=== PATIENT | female | born 1940 | race Caucasian/White ===

== ENCOUNTER 2020-02-18 05:26 | Day surgery (SDC) | payer OTHER ==
[~2020-02-18] VITALS: Ht 157.5 cm; Wt 83.4 kg
[2020-02-18] VITALS (9 sets, daily range): BP systolic 117–134; BP diastolic 59–94
[2020-02-18] MEDS ORDERED: LIDOcaine 1% (10mg/ml)w/preservative injection 20ml MDV ONE (05:54)
[2020-02-18] MEDS ORDERED: iohexol 350MG/ML 100ml bottle IV ONE (05:54)
[2020-02-18] MEDS ORDERED: fentaNYL/PF 50MCG/1 ML 2ML syringe ONE (05:54)
[2020-02-18] MEDS ORDERED: midazolam 2 mg/2 ml injection ONE (05:54)
[2020-02-18] MEDS ORDERED: diphenhydrAMINE 25mg capsule PO PRN (05:55)
[2020-02-18] MEDS ORDERED: LORazepam 0.5 MG tablet PO PRN (05:55)
[2020-02-18] MEDS ORDERED: normal saline 1,000 ML IV SCH (05:55)
[2020-02-18] MEDS ORDERED: SOLI10TA2 PO (06:21)
[2020-02-18] MEDS ORDERED: NEBI20TA2 PO (06:23)
[2020-02-18] MEDS ORDERED: CITA20TA28 PO (06:24)
[2020-02-18] MEDS ORDERED: LOSA25TA96 PO (06:25)
[2020-02-18] MEDS ORDERED: HCTZ25T PO (06:26)
[2020-02-18] MEDS ORDERED: HYDR-4069 PO (06:28)
[2020-02-18] MEDS ORDERED: AMLO10TA4 PO (06:37)
[2020-02-18] MEDS ORDERED: diphenhydrAMINE 50 mg/ml inj ONE (06:42)
[2020-02-18 06:51] LABS: BASOPHILS # (AUTO) 0.1 X10'3 (0-0.2); BASOPHILS % (AUTO) 0.8 % (0-1); EOSINOPHILS # (AUTO) 0.9 X10'3 (0-0.9); EOSINOPHILS % (AUTO) 9.9 % (0-6); HEMATOCRIT 43.4 % (35.0-45.0); HEMOGLOBIN 14.4 g/dl (12.0-16.0); LYMPHOCYTES # (AUTO) 2.1 X10'3 (1.1-4.8); LYMPHOCYTES % (AUTO) 24.5 % (21-51); MEAN CORPUSCULAR HEMOGLOBIN 31.2 PG (27.0-31.0); MEAN CORPUSCULAR HGB CONC 33.1 g/dL (33.0-36.5); MEAN CORPUSCULAR VOLUME 94.4 FL (78-98); MEAN PLATELET VOLUME 8.7 FL (7.4-10.4); MONOCYTES # (AUTO) 0.5 X10'3 (0-0.9); NEUTROPHILS # (AUTO) 5.1 X10'3 (1.8-7.7); NEUTROPHILS % (AUTO) 58.8 % (42-75); PLATELET COUNT 146 X10'3 (140-440); RED CELL DISTRIBUTION WIDTH 13.3 % (11.5-14.5); WHITE BLOOD COUNT 8.7 X10'3 (4.5-11.0)
[2020-02-18] MEDS ORDERED: iohexol 350 MG/ML 50ML vial IV ONE (06:53)
[2020-02-18 06:58] LABS: ALBUMIN 3.5 G/DL (3.4-5.0); ANION GAP 5 (8-16); BLOOD UREA NITROGEN 14 MG/DL (7-18); CALCIUM 8.6 MG/DL (8.5-10.1); CHLORIDE 106 MMOL/L (99-107); CREATININE 1.08 MG/DL (0.40-0.90); GLUCOSE 102 MG/DL (70-104); PARTIAL THROMBOPLASTIN TIME 27 SECONDS (22-32); POTASSIUM 3.6 MMOL/L (3.5-5.1); SODIUM 144 MMOL/L (135-145); TOTAL CARBON DIOXIDE 33.3 MMOL/L (24-32); eGFR 49 ML/MIN
== END 2020-02-18 10:10 | disposition home or self-care (01) ==
LOC: SSTAY O 05:26
PROVIDERS: ATTEND Internal Medicine Interventional Cardiology
DX: I71.2 Thoracic aortic aneurysm, without rupture (principal); I25.10 Atherosclerotic heart disease of native coronary artery without angina pectoris; I10 Essential (primary) hypertension; Z79.899 Other long term (current) drug therapy; Z90.710 Acquired absence of both cervix and uterus; Z98.890 Other specified postprocedural states; Z72.89 Other problems related to lifestyle; Z79.01 Long term (current) use of anticoagulants; Z80.0 Family history of malignant neoplasm of digestive organs
CPT/HCPCS: 36415; 80048; 85025; 85610; 85730; 93458; 93567; 99152; 99153; C1769; C1894; J1200; J1644; J2001; J2250; J3010; Q9967; A4620

== ENCOUNTER 2020-03-20 05:09 | Inpatient (IN) | payer OTHER ==
[2020-03-13] MEDS: albuterol 2.5 MG/3 ML nebule NEB PRN (13:06)
[2020-03-13 14:18] LABS: BASOPHILS # (AUTO) 0.1 X10'3 (0-0.2); BASOPHILS % (AUTO) 0.8 % (0-1); EOSINOPHILS # (AUTO) 0.7 X10'3 (0-0.9); EOSINOPHILS % (AUTO) 9.1 % (0-6); LYMPHOCYTES # (AUTO) 2.9 X10'3 (1.1-4.8); MEAN CORPUSCULAR HEMOGLOBIN 31.7 PG (27.0-31.0); MEAN CORPUSCULAR HGB CONC 33.7 g/dL (33.0-36.5); MEAN CORPUSCULAR VOLUME 94.2 FL (78-98); MEAN PLATELET VOLUME 8.2 FL (7.4-10.4); MONOCYTES # (AUTO) 0.5 X10'3 (0-0.9); MONOCYTES % (AUTO) 6.1 % (2-12); PRE OP HEMATOCRIT 42.9 % (35.0-45.0); PRE OP HEMOGLOBIN 14.4 g/dL (12.0-16.0); PRE OP PLATELET COUNT 153 X10'3 (140-440); RED BLOOD COUNT 4.55 X10'6 (4.20-5.60); RED CELL DISTRIBUTION WIDTH 13.6 % (11.5-14.5)
[2020-03-13 14:31] LABS: PRE OP PROTIME 9.9 SECONDS (9.0-12.0)
[2020-03-13 14:35] LABS: ALBUMIN 3.9 G/DL (3.4-5.0); ALBUMIN/GLOBULIN RATIO 1.2 (1.1-1.5); ALKALINE PHOSPHATASE 50 IU/L (46-116); BLOOD UREA NITROGEN 18 MG/DL (7-18); BUN/CREATININE RATIO 19.4 (6.6-38.0); CHLORIDE 102 MMOL/L (99-107); CREATININE 0.93 MG/DL (0.40-0.90); PRE OP ALT 16 U/L (30-65); PRE OP ANION GAP 8 (8-16); PRE OP AST 19 U/L (10-37); PRE OP BILIRUB, TOTAL 0.5 MG/DL (0.0-1.0); PRE OP GLUCOSE 95 MG/DL (70-104); PRE OP SODIUM 143 MMOL/L (135-145); TOTAL CARBON DIOXIDE 33.2 MMOL/L (24-32); TOTAL PROTEIN 7.2 G/DL (6.4-8.2); eGFR 58 ML/MIN
[2020-03-13 14:36] LABS: PRE OP POTASSIUM 3.3 MMOL/L (3.4-5.1)
[2020-03-13 15:23] LABS: CLARITY,URINE SLIGHTLY CLOUDY (Clear); COLOR,URINE STRAW (Yellow); GLUCOSE, URINE NEGATIVE (Neg); KETONES,URINE NEGATIVE (Neg); LEUKOCYTE ESTERASE ,URINE NEGATIVE (Neg); NITRITES, URINE NEGATIVE (Neg); OCCULT BLOOD,URINE NEGATIVE (Neg); PROTEIN,URINE NEGATIVE (Neg); UROBILINOGEN,URINE 0.2 E.U/dL (0.2-1.0)
[2020-03-13 15:30] LABS: UA COLLECTION TYPE NON-SPECIFIED
[2020-03-13 15:40] LABS: MUCUS STRANDS NONE SEEN /LPF (Neg); SQUAMOUS EPITHELIAL CELL,UR FEW /LPF (FEW)
[2020-03-13 15:41] LABS: BACTERIA,URINE NONE SEEN /HPF (Neg); RBC,URINE 0-2 /HPF (0-2); WBC,URINE 0-4 /HPF (0-4)
[~2020-03-20] VITALS: Ht 160 cm; Wt 84.7 kg
[2020-03-20] VITALS (18 sets, daily range): BP systolic 104–141; BP diastolic 54–90
[~2020-03-20 05:09] MED LIST: AMLO10TA4 PO; CITA20TA28 PO; HCTZ25T PO; HYDR-4069 PO; LOSA25TA96 PO; NEBI20TA2 PO; SOLI10TA2 PO; albuterol 2.5 MG/3 ML nebule ONE; ringers solution, lacted 1,000 ML IV SCH
[2020-03-20] MEDS ORDERED: ceFAZolin 1000mg inj ONE (05:11)
[2020-03-20] MEDS ORDERED: mupirocin 2% nasal ointment 1gm UD NS ONE (05:30)
[2020-03-20] MEDS ORDERED: DOCUMENT DATE & TIME OF BETA-BLOCKER PO ONE (05:30)
[2020-03-20] MEDS ORDERED: famotidine 20mg tablet PO ONE (05:30)
[2020-03-20] MEDS ORDERED: gabapentin 400mg capsule PO ONE (05:30)
[2020-03-20] MEDS ORDERED: cefazolin/dext.iso 2gm/50ml 50 ML IV ONE (05:30)
[2020-03-20] MEDS ORDERED: vancomycin 1,500 MG in NS 500ml IV soln IV ONE (05:30)
[2020-03-20] MEDS ORDERED: dextrose 50%-water 50ml dispensing syringe IV PRN ×2 (05:30→12:15)
[2020-03-20] MEDS ORDERED: LORazepam 2 mg/ml vial IV PRN (05:30)
[2020-03-20] MEDS: Insulin Reg/NS 100units/100mL 100 ML IV SCH (05:30)
[2020-03-20] MEDS ORDERED: metoprolol tartrate 12.5mg (1/2 tablet) PO ONE (05:30)
[2020-03-20] MEDS: insulin Lispro (HumaLOG) vial - multi-dose SQ SCH ×3 (07:00→17:00)
[2020-03-20] MEDS ORDERED: SUFENTANIL CITRATE 50 MCG/ML 2ml ampule IV ONE (07:18)
[2020-03-20] MEDS ORDERED: MIDAZolam 1mg/ml 10ml vial ONE (07:18)
[2020-03-20 08:56] LABS: ABG BASE EXCESS 4.2 mmol/L (-2.0-3.0); ABG HCO3 26.7 mmol/L (22.0-26.0); ABG OXYGEN SATURATION 99.5 % (95-98); ABG PCO2 33.2 mmHg (35.0-45.0); ABG PH 7.524 (7.350-7.450); ABG PO2 466.8 mmHg (60.0-100.0); CL (ABG) 103 mmol/L (99-107); FCOHb 0.3 % (0.5-1.5); FMetHb 0.4 % (0.3-1.12); FO2Hb 98.8 % (94-100); GLUCOSE (ABG) 98 mg/dl (70-104); IONIZED CA (ABG) 1.07 mmol/L (1.03-1.32); K (ABG) 3.5 mmol/L (3.3-5.1); NA (ABG) 136 mmol/L (135-145); TOTAL HEMOGLOBIN 12.8 G/dl (12.0-16.0)
[2020-03-20] MEDS ORDERED: methylPREDNISolone sod succ 1000mg vial ONE (09:00)
[2020-03-20] MEDS ORDERED: heparin 10,000 units/1 ML INJ ONE (09:00)
[2020-03-20] MEDS ORDERED: sodium bicarbonate (8.4%) inj. 1 MEQ/ML ML ONE (09:00)
[2020-03-20] MEDS ORDERED: aminocaproic acid 250 MG/1 ML inj. ONE (09:00)
[2020-03-20] MEDS ORDERED: potassium Cl 2 mEq/ml inj IV ONE (09:00)
[2020-03-20] MEDS ORDERED: calcium chloride 100 MG/1 ML inj IV ONE (09:00)
[2020-03-20] MEDS ORDERED: phenylephrine 10mg/ml inj. ONE (09:00)
[2020-03-20] MEDS ORDERED: LIDOcaine 2% (20 mg/ml) 5ml cardiac syringe ONE (09:00)
[2020-03-20] MEDS ORDERED: albumin (human) 25% 100 ML IV solution IV ONE (09:00)
[2020-03-20] MEDS ORDERED: heparin 1,000 units/ml 10ml inj ONE (09:00)
[2020-03-20] MEDS ORDERED: magnesium sulf 1 GM/2 ML ONE (09:00)
[2020-03-20 10:11] LABS: ACT @ 1.70 U 316 SEC (193-297); ACT @ 2.84 U 431 SEC (260-420); BASELINE ACT 161 SEC (101-148); PATIENT WEIGHT 83.0k KG
[2020-03-20 10:26] LABS: ABG BASE EXCESS VENOUS 3.9 mmol/L; ABG HCO3 VENOUS 28.3 mmol/L; ABG PCO2 VENOUS 41.5 mmHg; ABG PO2 VENOUS 53.6 mmHg; CL (ABG) 101 mmol/L (99-107); FMetHb VENOUS 0.2 %; FO2Hb VENOUS 88.8 %; GLUCOSE (ABG) 136 mg/dl (70-104); IONIZED CA (ABG) 1.05 mmol/L (1.03-1.32); K (ABG) 3.8 mmol/L (3.3-5.1); NA (ABG) 136 mmol/L (135-145); TOTAL HEMOGLOBIN 10.8 G/dl (12.0-16.0)
[2020-03-20 10:50] LABS: ABG HCO3 32.4 mmol/L (22.0-26.0); ABG OXYGEN SATURATION 98.5 % (95-98); ABG PCO2 39.9 mmHg (35.0-45.0); ABG PH 7.528 (7.350-7.450); ABG PO2 156.5 mmHg (60.0-100.0); CL (ABG) 99 mmol/L (99-107); FCOHb 0.3 % (0.5-1.5); FMetHb 0.5 % (0.3-1.12); FO2Hb 97.7 % (94-100); GLUCOSE (ABG) 169 mg/dl (70-104); IONIZED CA (ABG) 1.41 mmol/L (1.03-1.32); K (ABG) 4.2 mmol/L (3.3-5.1); NA (ABG) 131 mmol/L (135-145); TOTAL HEMOGLOBIN 9.5 G/dl (12.0-16.0)
[2020-03-20] MEDS ORDERED: albumin (Human) 5% 250ml 250 ML IV ONE ×2 (11:27→11:29)
[2020-03-20] MEDS ORDERED: LIDOcaine 2% (20mg/ml) 5ml vial ONE (11:28)
[2020-03-20] MEDS ORDERED: pancuronium br 1mg/ml inj IV ONE (11:28)
[2020-03-20] MEDS ORDERED: propofol inj 20 ML IV ONE (11:28)
[2020-03-20] MEDS ORDERED: desmopressin inj. 25 MCG in normal saline 100ml IV soln 93.75 ML IV ONE (11:30)
[2020-03-20 11:31] LABS: ABG BASE EXCESS 6.1 mmol/L (-2.0-3.0); ABG HCO3 30.1 mmol/L (22.0-26.0); ABG OXYGEN SATURATION 91.6 % (95-98); ABG PCO2 41.5 mmHg (35.0-45.0); ABG PH 7.479 (7.350-7.450); CL (ABG) 102 mmol/L (99-107); FCOHb 0.3 % (0.5-1.5); FMetHb 0.5 % (0.3-1.12); FO2Hb 90.9 % (94-100); GLUCOSE (ABG) 157 mg/dl (70-104); IONIZED CA (ABG) 1.18 mmol/L (1.03-1.32); K (ABG) 3.9 mmol/L (3.3-5.1); NA (ABG) 136 mmol/L (135-145); TOTAL HEMOGLOBIN 9.9 G/dl (12.0-16.0)
[2020-03-20] MEDS ORDERED: DOPamine 400mg/D5W 250ml 250 ML IV PRN ×2 (12:13→12:31)
[2020-03-20] MEDS ORDERED: niCARDipine-NS 40mg/200ml IVPB 200 ML IV PRN ×2 (12:13→12:32)
[2020-03-20] MEDS ORDERED: Insulin Reg/NS 100units/100mL 100 ML IV SCH (12:13)
[2020-03-20] MEDS ORDERED: nitroGLYCERIN-Tridil 50MG/D5W 250 ML IV PRN ×2 (12:13→12:32)
[2020-03-20] MEDS ORDERED: mineral oil 133ml enema RC PRN (12:15)
[2020-03-20] MEDS ORDERED: morphine 4 MG/ML inj SYRINge IV PRN ×2 (12:15)
[2020-03-20] MEDS ORDERED: Neutra Phos packet PO PRN (12:15)
[2020-03-20] MEDS ORDERED: magnesium 4gm in 100ml NS 100 ML IV PRN (12:15)
[2020-03-20] MEDS ORDERED: acetaminophen 325mg tablet PO PRN ×2 (12:15)
[2020-03-20] MEDS ORDERED: sodium phosphate inj. 30 MMOL in dextrose 5%-water 250 ML IV PRN (12:15)
[2020-03-20] MEDS ORDERED: normal saline 250ml IV soln 250 ML IV PRN (12:15)
[2020-03-20] MEDS ORDERED: bisacodyl 10mg suppository rectal RC PRN (12:15)
[2020-03-20] MEDS ORDERED: magnesium hydroxide 30ml (MOM) UD suspension PO PRN (12:15)
[2020-03-20] MEDS ORDERED: HYDROcodone/acetaminophen 10/325mg tab PO PRN ×2 (12:15)
[2020-03-20] MEDS ORDERED: pantoprazole 40 MG vial IV ONE (12:15)
[2020-03-20] MEDS ORDERED: magnesium citrate 296ml oral solution PO PRN (12:15)
[2020-03-20] MEDS ORDERED: magnesium 2GM in 50ml NS 50 ML IV PRN (12:15)
[2020-03-20] MEDS ORDERED: potassium Cl 20 mEq SR tablet PO PRN (12:15)
[2020-03-20] MEDS ORDERED: ondansetron/PF 4mg/2ml inj IV PRN (12:15)
[2020-03-20] MEDS ORDERED: metoclopramide 5 mg/ml inj IV PRN (12:15)
[2020-03-20] MEDS ORDERED: insulin glargine (Lantus) pen - multi-dose SQ PRN (12:15)
[2020-03-20] MEDS ORDERED: albumin (Human) 5% 250ml 250 ML IV PRN (12:15)
--- NOTE | 2020-03-20 12:30 | NUR ---
Received to room , accompanied by MD Arevalo and surgical crew. Placed on ventilator, to hot bread baker, arterial line and PA line pressure monitored. Chest tubes to suction at 20 cm. Boswell cath to gravity drainage. Dressings are dry and intact. See assessment record. All vasoactive drugs are infusing via central line. Assumed care of pt. with preceptor Flavio OCONNOR.
[2020-03-20 13:01] LABS: BASOPHILS % (AUTO) 0.2 % (0-1); EOSINOPHILS # (AUTO) 0.1 X10'3 (0-0.9); EOSINOPHILS % (AUTO) 1.2 % (0-6); HEMATOCRIT 32.2 % (35.0-45.0); HEMOGLOBIN 10.7 g/dl (12.0-16.0); LYMPHOCYTES % (AUTO) 9.6 % (21-51); MEAN CORPUSCULAR HEMOGLOBIN 31.2 PG (27.0-31.0); MEAN CORPUSCULAR HGB CONC 33.3 g/dL (33.0-36.5); MEAN CORPUSCULAR VOLUME 93.7 FL (78-98); MEAN PLATELET VOLUME 8.5 FL (7.4-10.4); MONOCYTES # (AUTO) 0.5 X10'3 (0-0.9); MONOCYTES % (AUTO) 4.5 % (2-12); NEUTROPHILS # (AUTO) 8.8 X10'3 (1.8-7.7); NEUTROPHILS % (AUTO) 84.5 % (42-75); PLATELET COUNT 83 X10'3 (140-440); RED BLOOD COUNT 3.44 X10'6 (4.20-5.60); RED CELL DISTRIBUTION WIDTH 13.6 % (11.5-14.5); WHITE BLOOD COUNT 10.4 X10'3 (4.5-11.0)
[2020-03-20 13:13] LABS: PARTIAL THROMBOPLASTIN TIME 35 SECONDS (22-32)
[2020-03-20] MEDS: sodium chloride 0.45% 1,000 ML IV SCH (13:14)
[2020-03-20] MEDS: gabapentin 300mg capsule PO SCH ×2 (13:14→20:37)
[2020-03-20 13:16] LABS: ALANINE AMINOTRANSFERASE 37 U/L (12-78); ALBUMIN 2.9 G/DL (3.4-5.0); ALBUMIN/GLOBULIN RATIO 1.6 (1.1-1.5); ALKALINE PHOSPHATASE 34 IU/L (46-116); ANION GAP 8 (8-16); ASPARTATE AMINO TRANSFERASE 66 U/L (10-37); BILIRUBIN,TOTAL 1.1 MG/DL (0.1-1.0); BLOOD UREA NITROGEN 14 MG/DL (7-18); BUN/CREATININE RATIO 14.3 (6.6-38.0); CALCIUM 8.4 MG/DL (8.5-10.1); CHLORIDE 110 MMOL/L (99-107); CREATININE 0.98 MG/DL (0.40-0.90); GLUCOSE 177 MG/DL (70-104); MAGNESIUM 3.2 MG/DL (1.5-2.4); PHOSPHORUS 2.2 MG/DL (2.3-4.5); POTASSIUM 3.6 MMOL/L (3.5-5.1); SODIUM 146 MMOL/L (135-145); TOTAL CARBON DIOXIDE 28.4 MMOL/L (24-32); TOTAL PROTEIN 4.7 G/DL (6.4-8.2); eGFR 54 ML/MIN
[2020-03-20 13:20] LABS: ABG BASE EXCESS 3.9 mmol/L (-2.0-3.0); ABG HCO3 27.4 mmol/L (22.0-26.0); ABG PCO2 (T) 37.6 mmHg (35.0-45.0); ABG PH (T) 7.481 (7.350-7.450); ABG PO2 (T) 234.9 mmHg (83-108); FCOHb 0.3 % (0.5-1.5); FO2Hb 98.7 % (94-100); PEEP 5 cm H2O; RESPIRATORY RATE 12 b/min; TIDAL VOLUME 650 mL; TOTAL HEMOGLOBIN 11.9 G/dl (12.0-16.0)
[2020-03-20 13:50] LABS: NUCLEATED RED BLOOD CELLS 3 /100WBC (0-0); PLATELET ESTIMATE DECREASED; TOTAL CELLS COUNTED 100
[2020-03-20 13:51] LABS: LARGE PLATELETS FEW
[2020-03-20] MEDS: potassium Cl 20mEq/100mL bag 100 ML IV PRN ×5 (13:51→21:44)
[2020-03-20] MEDS: sodium phosphate inj. 15 MMOL in dextrose 5%-water 250 ML IV PRN ×2 (14:21→21:24)
[2020-03-20] MEDS: ceFAZolin 1GM/D5W- ADD-VANTAGE 50 ML IV SCH (15:44)
--- NOTE | 2020-03-20 18:10 | NUR ---
Problems reprioritized. Patient report given, questions answered & plan of care reviewed with Bharati OCONNOR.
--- NOTE | 2020-03-20 18:15 | NUR ---
Patient in room ICU 2039. I have received report from Mona OCONNOR & Flavio RN and had the opportunity to ask questions and assume patient care.
[2020-03-20 19:14] LABS: BASOPHILS % (AUTO) 0.1 % (0-1); EOSINOPHILS % (AUTO) 0.1 % (0-6); HEMATOCRIT 35.2 % (35.0-45.0); HEMOGLOBIN 11.7 g/dl (12.0-16.0); LYMPHOCYTES # (AUTO) 0.7 X10'3 (1.1-4.8); LYMPHOCYTES % (AUTO) 8.1 % (21-51); MEAN CORPUSCULAR HEMOGLOBIN 31.7 PG (27.0-31.0); MEAN CORPUSCULAR HGB CONC 33.3 g/dL (33.0-36.5); MEAN CORPUSCULAR VOLUME 95.3 FL (78-98); MEAN PLATELET VOLUME 8.9 FL (7.4-10.4); MONOCYTES # (AUTO) 0.5 X10'3 (0-0.9); MONOCYTES % (AUTO) 5.1 % (2-12); NEUTROPHILS % (AUTO) 86.6 % (42-75); PLATELET COUNT 93 X10'3 (140-440); RED BLOOD COUNT 3.69 X10'6 (4.20-5.60); RED CELL DISTRIBUTION WIDTH 13.9 % (11.5-14.5); WHITE BLOOD COUNT 9.2 X10'3 (4.5-11.0)
[2020-03-20 19:26] LABS: ALBUMIN 3.1 G/DL (3.4-5.0); ANION GAP 8 (8-16); BLOOD UREA NITROGEN 14 MG/DL (7-18); BUN/CREATININE RATIO 12.1 (6.6-38.0); CALCIUM 8.3 MG/DL (8.5-10.1); CHLORIDE 112 MMOL/L (99-107); CREATININE 1.16 MG/DL (0.40-0.90); GLUCOSE 144 MG/DL (70-104); MAGNESIUM 2.5 MG/DL (1.5-2.4); PHOSPHORUS 1.9 MG/DL (2.3-4.5); POTASSIUM 3.8 MMOL/L (3.5-5.1); SODIUM 146 MMOL/L (135-145); TOTAL CARBON DIOXIDE 26.3 MMOL/L (24-32); eGFR 45 ML/MIN
[2020-03-20] MEDS: sennosides/docusate sodium tablet PO SCH (20:00)
[2020-03-20] MEDS: mupirocin 2% nasal ointment 1gm UD NS SCH (20:34)
[2020-03-20] MEDS: vancomycin/NS 1 GM ADD-VANTAGE 250 ML IV SCH (20:34)
--- NOTE | 2020-03-20 22:05 | NUR ---
PT STILL VERY SLEEPY, WAKES WITH PAINFUL STIMULI BUT IS FOLLOWING COMMANDS AND NODS HEAD APPROPRIATELY TO QUESTIONS ASKED. INCREASED DOPAMINE DRIP TO MAINTAIN A CI GREATER THAN 2. WILL CONTINUE TO MONITOR
[2020-03-21] VITALS (24 sets, daily range): BP systolic 101–144; BP diastolic 51–97
[2020-03-21] MEDS: ceFAZolin 1GM/D5W- ADD-VANTAGE 50 ML IV SCH ×3 (00:36→15:44)
--- NOTE | 2020-03-21 01:30 | NUR ---
PT IS STILL VERY SLEEPY, HAVING A HARD TIME CLEARING ANAESTHESIA. TRIED TO PLACE THE PT ON SPONTANEOUS ON THE VENT BUT THE PT DID NOT TOLERATE IT SO WE SWITCHED HER BACK TO A RATE.
[2020-03-21 03:39] LABS: BASOPHILS % (AUTO) 0.1 % (0-1); EOSINOPHILS % (AUTO) 0 % (0-6); HEMATOCRIT 37.3 % (35.0-45.0); HEMOGLOBIN 12.2 g/dl (12.0-16.0); LYMPHOCYTES # (AUTO) 1.4 X10'3 (1.1-4.8); LYMPHOCYTES % (AUTO) 8.7 % (21-51); MEAN CORPUSCULAR HEMOGLOBIN 31.5 PG (27.0-31.0); MEAN CORPUSCULAR HGB CONC 32.6 g/dL (33.0-36.5); MEAN CORPUSCULAR VOLUME 96.6 FL (78-98); MONOCYTES # (AUTO) 0.5 X10'3 (0-0.9); MONOCYTES % (AUTO) 3.4 % (2-12); NEUTROPHILS # (AUTO) 14.1 X10'3 (1.8-7.7); NEUTROPHILS % (AUTO) 87.8 % (42-75); PLATELET COUNT 126 X10'3 (140-440); RED BLOOD COUNT 3.86 X10'6 (4.20-5.60); RED CELL DISTRIBUTION WIDTH 14.1 % (11.5-14.5)
[2020-03-21 03:50] LABS: ABG BASE EXCESS -0.1 mmol/L (-2.0-3.0); ABG HCO3 26.2 mmol/L (22.0-26.0); ABG OXYGEN SATURATION 94.7 % (95-98); ABG PCO2 (T) 50.3 mmHg (35.0-45.0); ABG PH (T) 7.337 (7.350-7.450); ABG PO2 (T) 82.9 mmHg (83-108); FCOHb 0.1 % (0.5-1.5); FMetHb 0.1 % (0.3-1.12); FO2Hb 94.5 % (94-100); PATIENT TEMPERATURE 37.5; PEEP 5 cm H2O
[2020-03-21 04:04] LABS: PARTIAL THROMBOPLASTIN TIME 25 SECONDS (22-32)
[2020-03-21 04:08] LABS: ALANINE AMINOTRANSFERASE 77 U/L (12-78); ALBUMIN 3.3 G/DL (3.4-5.0); ALBUMIN/GLOBULIN RATIO 1.6 (1.1-1.5); ALKALINE PHOSPHATASE 41 IU/L (46-116); ANION GAP 7 (8-16); ASPARTATE AMINO TRANSFERASE 78 U/L (10-37); BILIRUBIN,TOTAL 0.5 MG/DL (0.1-1.0); BLOOD UREA NITROGEN 14 MG/DL (7-18); BUN/CREATININE RATIO 12.1 (6.6-38.0); CHLORIDE 112 MMOL/L (99-107); CREATININE 1.16 MG/DL (0.40-0.90); GLUCOSE 135 MG/DL (70-104); MAGNESIUM 2.3 MG/DL (1.5-2.4); PHOSPHORUS 4.9 MG/DL (2.3-4.5); POTASSIUM 4.1 MMOL/L (3.5-5.1); SODIUM 146 MMOL/L (135-145); TOTAL CARBON DIOXIDE 27.2 MMOL/L (24-32); TOTAL PROTEIN 5.4 G/DL (6.4-8.2); eGFR 45 ML/MIN
[2020-03-21] MEDS ORDERED: albuterol 2.5 MG/3 ML nebule NEB PRN (04:20)
[2020-03-21] MEDS: albuterol 2.5 MG/3 ML nebule NEB PRN (04:27)
--- NOTE | 2020-03-21 04:30 | NUR ---
PT TOLERATED SPONTANEOUS BREATHING TRIAL WELL AND PASSED WEANING PARAMETERS. JIMMIE RT AND I WERE ABLE TO EXTUBATE PT AT 0400 TO 4LPM NASAL CANNULA. PT DOES HAVE SOME STRIDOR PRESENT BUT STATES THAT HER BREATHING "FEELS FINE". JIMMIE RT PREPARING TO GIVE BREATHING TREATMENT. PT'S HEMODYNAMICS CONTINUE TO REMAIN STABLE WITH THE PT ON 2MCG/KG/MIN DOPAMINE. CHEST TUBE OUTPUT REMAINING BELOW 50ML/HR AND URINE OUTPUT GREATER THAN 30ML/HR.
[2020-03-21] MEDS: potassium Cl 20mEq/100mL bag 100 ML IV PRN ×2 (05:00→07:00)
--- NOTE | 2020-03-21 05:26 | NUR ---
PT STILL HAS STRIDOR PRESENT BUT FEELS "COMFORTABLE" WITH HER BREATHING. JIMMIE RT EDUCATED PT ON HOW TO USE IS AND FLUTTER VALVE ALONG WITH DEEP BREATHING AND COUGHING. PT WAS RECEPTIVE TO TEACHING BUT WILL NEED ONGOING REINFORCEMENT AND ENCOURAGEMENT ONCE MORE AWAKE. PT'S K AND MAG CAME BACK LOW ON HER MORNING LABS SO WE ARE REPLACING PER ORDERS.
--- NOTE | 2020-03-21 06:12 | NUR ---
Problems reprioritized. Patient report given, questions answered & plan of care reviewed with ILDEFONSO OCONNOR.
--- NOTE | 2020-03-21 06:44 | NUR ---
Patient in room ICU 2039. I have received report from Bharati OCONNOR and had the opportunity to ask questions and assume patient care. Dopamine turned off for CO 6.5, CI 3.6, HR 75. Insulin gtt turned off per protocol; pt. is not diabetic, HA1C is <7 and rate is 2.7. Charge nurse aware.
[2020-03-21] MEDS: insulin Lispro (HumaLOG) vial - multi-dose SQ SCH ×3 (07:00→17:00)
[2020-03-21] MEDS: mupirocin 2% nasal ointment 1gm UD NS SCH ×2 (07:15→20:00)
[2020-03-21] MEDS: gabapentin 300mg capsule PO SCH ×3 (07:15→20:30)
[2020-03-21] MEDS: sennosides/docusate sodium tablet PO SCH ×2 (07:15→20:00)
[2020-03-21] MEDS: atorvastatin 10mg tablet PO SCH (07:15)
[2020-03-21] MEDS: metoprolol tartrate 12.5mg (1/2 tablet) PO SCH ×2 (07:16→20:00)
[2020-03-21] MEDS: vancomycin/NS 1 GM ADD-VANTAGE 250 ML IV SCH ×2 (07:53→20:00)
[2020-03-21] MEDS ORDERED: tranexamic acid 100mg/ml inj. ONE (07:55)
[2020-03-21] MEDS ORDERED: protamine sulf. 10mg/ml inj. IV ONE (07:55)
[2020-03-21] MEDS ORDERED: nitroGLYCERIN in D5W 50mg/250ml (Tridil) infusion IV ONE (07:55)
[2020-03-21] MEDS ORDERED: sevoflurane 250ml liquid IH ONE (07:55)
[2020-03-21] MEDS ORDERED: INSULIN R 100 UNIT in NS 100ML (1 UNIT/1 ML) BAG IV ONE (07:55)
--- NOTE | 2020-03-21 07:55 | NUR ---
Dr. Arevalo's PAMera here to see pt. Aware of pt's slight stridor. Aware of current VS, drips all dc'd, CT and urine output, etc.
[2020-03-21] MEDS ORDERED: aspirin 325mg tablet, delayed-release (Ecotrin) PO SCH (08:00)
--- NOTE | 2020-03-21 09:37 | NUR ---
CHINTAN/Jaguar and ART lines dc'd per order. PT. just assisted pt. to chair. VSS
--- NOTE | 2020-03-21 11:43 | NUR ---
Pt. was c/o "seeing people that aren't here." RN reassured pt. that the effects of anesthesia can sometimes cause hallucinations.
--- NOTE | 2020-03-21 11:56 | NUR ---
Nutrition consult, patient s/p aortic valve replacement. Will need written post cardiac surgery nutrition education handout with verbal review prior to discharge. Patient observed resting, per RN note still clearing anesthesia. Will follow. Addendum: 03/21/20 at [address] Amended: Links added.
--- NOTE | 2020-03-21 11:57 | NUR ---
Pt's Jesse called earlier for an update. RN spoke with Jesse then transferred him into speak with patient.
[2020-03-21] MEDS: Insulin Reg/NS 100units/100mL 100 ML IV SCH (14:50)
[2020-03-21] MEDS ORDERED: furosemide 40mg/4ml inj IV ONE (14:50)
--- NOTE | 2020-03-21 17:24 | NUR ---
Pt. has spilled her water inadvertently twice this shift as her hands are shaky and weak.
--- NOTE | 2020-03-21 18:13 | NUR ---
Problems reprioritized. Patient report given, questions answered & plan of care reviewed with Barbi OCONNOR.
--- NOTE | 2020-03-21 18:30 | NUR ---
Patient up to chair in room ICU 2039. I have received report from Mona OCONNOR and had the opportunity to ask questions and assume patient care.
[2020-03-21] MEDS ORDERED: losartan 25mg tablet PO SCH (21:00)
[2020-03-22] VITALS (21 sets, daily range): BP systolic 111–147; BP diastolic 58–90
[2020-03-22] MEDS: ceFAZolin 1GM/D5W- ADD-VANTAGE 50 ML IV SCH (00:43)
[2020-03-22 02:58] LABS: BASOPHILS % (AUTO) 0.1 % (0-1); EOSINOPHILS % (AUTO) 0 % (0-6); HEMATOCRIT 31.7 % (35.0-45.0); HEMOGLOBIN 10.2 g/dl (12.0-16.0); LYMPHOCYTES # (AUTO) 1.1 X10'3 (1.1-4.8); LYMPHOCYTES % (AUTO) 6.1 % (21-51); MEAN CORPUSCULAR HEMOGLOBIN 31.1 PG (27.0-31.0); MEAN CORPUSCULAR HGB CONC 32.1 g/dL (33.0-36.5); MEAN CORPUSCULAR VOLUME 96.9 FL (78-98); MEAN PLATELET VOLUME 9.4 FL (7.4-10.4); MONOCYTES # (AUTO) 1.2 X10'3 (0-0.9); MONOCYTES % (AUTO) 6.7 % (2-12); NEUTROPHILS # (AUTO) 15.4 X10'3 (1.8-7.7); NEUTROPHILS % (AUTO) 87.1 % (42-75); PLATELET COUNT 93 X10'3 (140-440); RED BLOOD COUNT 3.27 X10'6 (4.20-5.60); RED CELL DISTRIBUTION WIDTH 14.5 % (11.5-14.5); WHITE BLOOD COUNT 17.7 X10'3 (4.5-11.0)
[2020-03-22 03:13] LABS: ANION GAP 3 (8-16); BLOOD UREA NITROGEN 26 MG/DL (7-18); BUN/CREATININE RATIO 24.3 (6.6-38.0); CALCIUM 7.9 MG/DL (8.5-10.1); CHLORIDE 109 MMOL/L (99-107); CREATININE 1.07 MG/DL (0.40-0.90); GLUCOSE 139 MG/DL (70-104); MAGNESIUM 2.6 MG/DL (1.5-2.4); PHOSPHORUS 3.8 MG/DL (2.3-4.5); POTASSIUM 4.6 MMOL/L (3.5-5.1); SODIUM 143 MMOL/L (135-145); TOTAL CARBON DIOXIDE 31.2 MMOL/L (24-32); eGFR 49 ML/MIN
--- NOTE | 2020-03-22 03:15 | NUR ---
Patient appears to be sleeping. Patient has an intermittent upper airway wheeze noted, swallow intact, sats maintained on 3LNC, IS and flutter valve use encouraged while awake.
--- NOTE | 2020-03-22 06:21 | NUR ---
report given and patient care assumed by Demond Wan.
--- NOTE | 2020-03-22 06:22 | NUR ---
[place] documentation: I have reviewed and agree with all interventions, assessments performed and documented by Paddy OCONNOR . [place] Medication Administration: For this medication-pass time frame, all medication were reviewed, dispensed, administered and documented per hospital policy by Paddy OCONNOR .
--- NOTE | 2020-03-22 06:24 | NUR ---
report given and patient care assumed by Demond Wan.
[2020-03-22] MEDS: insulin Lispro (HumaLOG) vial - multi-dose SQ SCH ×3 (07:00→17:00)
[2020-03-22] MEDS ORDERED: furosemide 40mg/4ml inj IV ONE (07:05)
[2020-03-22] MEDS: pantoprazole 40mg Tablet.DR PO SCH (07:38)
[2020-03-22] MEDS: aspirin 81mg tablet.DR PO SCH (07:38)
[2020-03-22] MEDS: gabapentin 300mg capsule PO SCH (07:38)
[2020-03-22] MEDS: sennosides/docusate sodium tablet PO SCH ×2 (07:38→20:24)
[2020-03-22] MEDS: atorvastatin 10mg tablet PO SCH (07:38)
[2020-03-22] MEDS: amLODIPine 5mg tablet PO SCH (07:38)
[2020-03-22] MEDS: mupirocin 2% nasal ointment 1gm UD NS SCH (07:39)
[2020-03-22] MEDS: sodium chloride 0.45% 1,000 ML IV SCH (13:16)
[2020-03-22] MEDS ORDERED: potassium Cl 20 mEq SR tablet PO PRN (16:50)
[2020-03-22] MEDS ORDERED: potassium Cl 20mEq/100mL bag 100 ML IV PRN (16:50)
[2020-03-22] MEDS ORDERED: magnesium 4gm in 100ml NS 100 ML IV PRN (16:50)
[2020-03-22] MEDS ORDERED: magnesium 2GM in 50ml NS 50 ML IV PRN (16:50)
--- NOTE | 2020-03-22 19:28 | NUR ---
Problems reprioritized. Patient report given, questions answered & plan of care reviewed with Nadeem RN ( ACCE )
[2020-03-22] MEDS: potassium Cl 20 mEq SR tablet PO SCH (19:54)
[2020-03-22] MEDS: magnesium Cl slow-release 64mg tablet PO SCH (19:54)
--- NOTE | 2020-03-22 19:55 | NUR ---
Pt is transferred to [place] [address] via w/c with portable monitor. Pt is stable, transfer tolerated well, no signs of distress. All belongings were with the pt.
[2020-03-22] MEDS: oxybutynin 5mg tablet PO SCH (20:25)
[2020-03-22] MEDS ORDERED: losartan 25mg tablet PO SCH (21:00)
--- NOTE | 2020-03-22 23:19 | NUR ---
Patient in room MED 311. I have received report from Liza OCONNOR and had the opportunity to ask questions and assume patient care.
[2020-03-23] VITALS (10 sets, daily range): BP systolic 109–140; BP diastolic 64–116
[2020-03-23 06:14] LABS: BASOPHILS % (AUTO) 0.1 % (0-1); EOSINOPHILS # (AUTO) 0.1 X10'3 (0-0.9); EOSINOPHILS % (AUTO) 0.7 % (0-6); HEMATOCRIT 32.6 % (35.0-45.0); HEMOGLOBIN 10.6 g/dl (12.0-16.0); LYMPHOCYTES # (AUTO) 2.1 X10'3 (1.1-4.8); MEAN CORPUSCULAR HEMOGLOBIN 31.2 PG (27.0-31.0); MEAN CORPUSCULAR HGB CONC 32.4 g/dL (33.0-36.5); MEAN CORPUSCULAR VOLUME 96.3 FL (78-98); MEAN PLATELET VOLUME 9.5 FL (7.4-10.4); MONOCYTES # (AUTO) 1.1 X10'3 (0-0.9); MONOCYTES % (AUTO) 8.1 % (2-12); NEUTROPHILS % (AUTO) 75.1 % (42-75); PLATELET COUNT 96 X10'3 (140-440); RED BLOOD COUNT 3.39 X10'6 (4.20-5.60); RED CELL DISTRIBUTION WIDTH 13.9 % (11.5-14.5); WHITE BLOOD COUNT 13.4 X10'3 (4.5-11.0)
[2020-03-23 06:25] LABS: ALBUMIN 3.1 G/DL (3.4-5.0); ANION GAP 4 (8-16); BLOOD UREA NITROGEN 22 MG/DL (7-18); BUN/CREATININE RATIO 24.7 (6.6-38.0); CALCIUM 8.3 MG/DL (8.5-10.1); CHLORIDE 105 MMOL/L (99-107); CREATININE 0.89 MG/DL (0.40-0.90); GLUCOSE 101 MG/DL (70-104); MAGNESIUM 2.1 MG/DL (1.5-2.4); POTASSIUM 4.3 MMOL/L (3.5-5.1); SODIUM 141 MMOL/L (135-145); TOTAL CARBON DIOXIDE 31.8 MMOL/L (24-32); eGFR 61 ML/MIN
--- NOTE | 2020-03-23 06:33 | NUR ---
Problems reprioritized. Patient report given, questions answered & plan of care reviewed with Miladis geiger.
[2020-03-23] MEDS: insulin Lispro (HumaLOG) vial - multi-dose SQ SCH ×3 (07:00→17:00)
[2020-03-23] MEDS ORDERED: furosemide 40mg/4ml inj IV ONE (07:20)
[2020-03-23] MEDS: aspirin 81mg tablet.DR PO SCH (08:45)
[2020-03-23] MEDS: oxybutynin 5mg tablet PO SCH ×3 (08:45→21:23)
[2020-03-23] MEDS: sennosides/docusate sodium tablet PO SCH ×2 (08:46→21:23)
[2020-03-23] MEDS: magnesium Cl slow-release 64mg tablet PO SCH ×2 (08:46→21:24)
[2020-03-23] MEDS: citalopram 20mg tablet PO SCH (08:46)
[2020-03-23] MEDS: potassium Cl 20 mEq SR tablet PO SCH ×2 (08:46→20:00)
[2020-03-23] MEDS: amLODIPine 5mg tablet PO SCH (08:47)
[2020-03-23] MEDS: pantoprazole 40mg Tablet.DR PO SCH (08:47)
[2020-03-23] MEDS: HYDROchlorothiazide 25mg tablet PO SCH (08:48)
[2020-03-23] MEDS: atorvastatin 10mg tablet PO SCH (08:48)
[2020-03-23] MEDS ORDERED: amiodarone 150mg/dext, iso-os 100 ML IV ONE (09:40)
[2020-03-23] MEDS: amiodarone/D5 360MG/200ML BAG 200 ML IV SCH ×2 (09:56→15:53)
--- NOTE | 2020-03-23 14:08 | NUR ---
Nutrition consult: Pt seen at bedside provided with written and verbal post cardiac surgery nutrition therapy and heart healthy educations. Pt on a no concentrated sweets diet initially averaging 75% PO intake however most recently averaging 50% PO intake not fully meeting nutrient needs at this time. Pt reports low PO intake secondary to surgery and not really liking the food however is with no food preferences at this time. Pt agrees to yogurt with dinner tonight and q breakfast. Pt states she has Boost and Premier protein at home, RD encouraged PO intake of ONS for increased protein needs. Pt states she generally drinks a Premier Protein 1-2 times a week. Pt reports only food allergy is shrimp and denies difficulty chewing/swallowing. Pt reports no issues with feeding self despite incision and denies texture modification at this time. Pt report LBM was Monday 03/19 and is feeling somewhat constipated. Pt currently receiving routine bowel care and pt agrees to prunes with dinner tonight. All food requests were d/w dietary. Pt provided with RD contact information and encouraged to reach out. Will remain available. Addendum: 03/23/20 at [address] Amended: Links added.
--- NOTE | 2020-03-23 18:00 | NUR ---
Patient in room MED 311. I have received report from FRANCHESCA OCONNOR and had the opportunity to ask questions and assume patient care.
--- NOTE | 2020-03-23 18:27 | NUR ---
Problems reprioritized. Patient report given, questions answered & plan of care reviewed with ELVIN Yeboah.
[2020-03-23] MEDS: losartan 50mg tablet PO SCH (21:24)
--- NOTE | 2020-03-23 23:00 | NUR ---
IV INFILTRATED, DC'D. WILL RESUME CARDIZEM GTT WHEN IV ACCESS ESTABLISHED
[2020-03-24 02:00] VITALS: BP 127/85
[2020-03-24] MEDS: amiodarone/D5 360MG/200ML BAG 200 ML IV SCH ×3 (03:51→07:36)
[2020-03-24 07:00] VITALS: BP 124/70
--- NOTE | 2020-03-24 07:19 | NUR ---
Patient in room MED 311. I have received report from ELVIN Yeboah and had the opportunity to ask questions and assume patient care.
--- NOTE | 2020-03-24 07:42 | NUR ---
Problems reprioritized. Patient report given, questions answered & plan of care reviewed with FRANCHESCA OCONNOR .
[2020-03-24 08:42] LABS: BASOPHILS % (AUTO) 0.4 % (0-1); EOSINOPHILS # (AUTO) 0.3 X10'3 (0-0.9); EOSINOPHILS % (AUTO) 3.1 % (0-6); HEMATOCRIT 32.2 % (35.0-45.0); HEMOGLOBIN 10.7 g/dl (12.0-16.0); LYMPHOCYTES # (AUTO) 1.8 X10'3 (1.1-4.8); LYMPHOCYTES % (AUTO) 16.9 % (21-51); MEAN CORPUSCULAR HEMOGLOBIN 31.5 PG (27.0-31.0); MEAN CORPUSCULAR HGB CONC 33.3 g/dL (33.0-36.5); MEAN CORPUSCULAR VOLUME 94.8 FL (78-98); MEAN PLATELET VOLUME 9.2 FL (7.4-10.4); MONOCYTES % (AUTO) 9.1 % (2-12); NEUTROPHILS # (AUTO) 7.4 X10'3 (1.8-7.7); NEUTROPHILS % (AUTO) 70.5 % (42-75); PLATELET COUNT 111 X10'3 (140-440); RED CELL DISTRIBUTION WIDTH 13.8 % (11.5-14.5); WHITE BLOOD COUNT 10.4 X10'3 (4.5-11.0)
[2020-03-24 08:49] LABS: ALBUMIN 2.9 G/DL (3.4-5.0); ANION GAP 2 (8-16); BLOOD UREA NITROGEN 16 MG/DL (7-18); BUN/CREATININE RATIO 21.6 (6.6-38.0); CALCIUM 8.7 MG/DL (8.5-10.1); CHLORIDE 106 MMOL/L (99-107); CREATININE 0.74 MG/DL (0.40-0.90); GLUCOSE 114 MG/DL (70-104); POTASSIUM 3.9 MMOL/L (3.5-5.1); SODIUM 144 MMOL/L (135-145); TOTAL CARBON DIOXIDE 35.6 MMOL/L (24-32); eGFR 75 ML/MIN
[2020-03-24] MEDS: oxybutynin 5mg tablet PO SCH ×3 (09:30→20:22)
[2020-03-24] MEDS: pantoprazole 40mg Tablet.DR PO SCH (09:30)
[2020-03-24] MEDS: HYDROchlorothiazide 25mg tablet PO SCH (09:30)
[2020-03-24] MEDS: citalopram 20mg tablet PO SCH (09:30)
[2020-03-24] MEDS: aspirin 81mg tablet.DR PO SCH (09:30)
[2020-03-24] MEDS: amLODIPine 5mg tablet PO SCH (09:32)
[2020-03-24] MEDS: atorvastatin 10mg tablet PO SCH (09:32)
[2020-03-24] MEDS: potassium Cl 20 mEq SR tablet PO SCH ×2 (09:32→20:21)
[2020-03-24] MEDS: sennosides/docusate sodium tablet PO SCH ×2 (09:34→20:22)
[2020-03-24] MEDS: magnesium Cl slow-release 64mg tablet PO SCH ×2 (09:34→20:00)
[2020-03-24] MEDS ORDERED: amiodarone 200mg tablet PO ONE (10:10)
[2020-03-24 11:00] VITALS: BP 135/72
[2020-03-24 15:00] VITALS: BP 116/70
--- NOTE | 2020-03-24 18:47 | NUR ---
Problems reprioritized. Patient report given, questions answered & plan of care reviewed with ELVIN Miller.
[2020-03-24 19:00] VITALS: BP 118/67
[2020-03-24] MEDS ORDERED: amiodarone 200mg tablet PO SCH (20:00)
[2020-03-24] MEDS: amiodarone 200mg tablet PO SCH (20:20)
[2020-03-24] MEDS: losartan 50mg tablet PO SCH (20:21)
[2020-03-24 21:27] VITALS: BP 129/87
[2020-03-25 02:32] VITALS: BP 141/76
[2020-03-25 06:00] VITALS: BP 144/82
--- NOTE | 2020-03-25 06:00 | NUR ---
Patient in room MED 311. I have received report from night nurse and had the opportunity to ask questions and assume patient care.
--- NOTE | 2020-03-25 06:06 | NUR ---
Patient in room MED 311. I have received report from ELVIN Miller and had the opportunity to ask questions and assume patient care.
[2020-03-25 06:20] LABS: BASOPHILS # (AUTO) 0.1 X10'3 (0-0.2); BASOPHILS % (AUTO) 0.5 % (0-1); EOSINOPHILS # (AUTO) 0.5 X10'3 (0-0.9); EOSINOPHILS % (AUTO) 4.8 % (0-6); HEMATOCRIT 30.6 % (35.0-45.0); HEMOGLOBIN 10.2 g/dl (12.0-16.0); LYMPHOCYTES # (AUTO) 2.2 X10'3 (1.1-4.8); LYMPHOCYTES % (AUTO) 21.8 % (21-51); MEAN CORPUSCULAR HEMOGLOBIN 31.9 PG (27.0-31.0); MEAN CORPUSCULAR HGB CONC 33.4 g/dL (33.0-36.5); MEAN CORPUSCULAR VOLUME 95.6 FL (78-98); MEAN PLATELET VOLUME 8.9 FL (7.4-10.4); MONOCYTES # (AUTO) 0.9 X10'3 (0-0.9); MONOCYTES % (AUTO) 9.2 % (2-12); NEUTROPHILS # (AUTO) 6.3 X10'3 (1.8-7.7); NEUTROPHILS % (AUTO) 63.7 % (42-75); PLATELET COUNT 141 X10'3 (140-440); RED CELL DISTRIBUTION WIDTH 13.8 % (11.5-14.5); WHITE BLOOD COUNT 9.9 X10'3 (4.5-11.0)
[2020-03-25 06:21] LABS: ALBUMIN 2.6 G/DL (3.4-5.0); ANION GAP 2 (8-16); BLOOD UREA NITROGEN 14 MG/DL (7-18); BUN/CREATININE RATIO 15.7 (6.6-38.0); CALCIUM 8.7 MG/DL (8.5-10.1); CHLORIDE 107 MMOL/L (99-107); CREATININE 0.89 MG/DL (0.40-0.90); GLUCOSE 101 MG/DL (70-104); MAGNESIUM 1.9 MG/DL (1.5-2.4); POTASSIUM 4.4 MMOL/L (3.5-5.1); SODIUM 146 MMOL/L (135-145); TOTAL CARBON DIOXIDE 36.6 MMOL/L (24-32); eGFR 61 ML/MIN
[2020-03-25] MEDS: pantoprazole 40mg Tablet.DR PO SCH (07:13)
[2020-03-25] MEDS: potassium Cl 20 mEq SR tablet PO SCH ×2 (07:29→20:02)
[2020-03-25] MEDS: amiodarone 200mg tablet PO SCH ×2 (07:37→20:03)
[2020-03-25] MEDS: citalopram 20mg tablet PO SCH (07:37)
[2020-03-25] MEDS: aspirin 81mg tablet.DR PO SCH (07:38)
[2020-03-25] MEDS: HYDROchlorothiazide 25mg tablet PO SCH (07:38)
[2020-03-25] MEDS: oxybutynin 5mg tablet PO SCH ×3 (07:38→20:04)
[2020-03-25] MEDS: atorvastatin 10mg tablet PO SCH (07:39)
[2020-03-25] MEDS: magnesium Cl slow-release 64mg tablet PO SCH ×2 (07:39→20:04)
[2020-03-25] MEDS: amLODIPine 5mg tablet PO SCH (07:39)
[2020-03-25] MEDS: sennosides/docusate sodium tablet PO SCH ×2 (07:39→20:03)
[2020-03-25 11:31] VITALS: BP 126/76
[2020-03-25 15:12] VITALS: BP 124/70
--- NOTE | 2020-03-25 16:31 | NUR ---
Took over care of pt for ELVIN García.
[2020-03-25 18:00] VITALS: BP 131/76
--- NOTE | 2020-03-25 18:23 | NUR ---
Problems reprioritized. Patient report given, questions answered & plan of care reviewed with
--- NOTE | 2020-03-25 18:32 | NUR ---
Patient in room MED 311. I have received report from SHANELLE OCONNOR and had the opportunity to ask questions and assume patient care. Addendum: 03/25/20 at 1833 by Mindy Haile RN Amended: Links added.
--- NOTE | 2020-03-25 19:30 | NUR ---
Reported patient has ongoing blood-tinged sputum s/p CABG to CHINTAN Ocampo : will continue to monitor per verbal order. will call back if increase in production /amount /change in color to provider. Gilberto OCONNOR
--- NOTE | 2020-03-25 19:50 | NUR ---
up bedside commode unable to void then assisted up to ambulate in the castellano with 02 tolerated fair. had been informed pt had been having some pink to red tinged sputum with cough have not seen it at this time.
[2020-03-25] MEDS: losartan 50mg tablet PO SCH (20:05)
--- NOTE | 2020-03-25 20:05 | NUR ---
pt took hs medications blood sugar 109 has not met protocol to start it.
--- NOTE | 2020-03-25 20:11 | NUR ---
PO intake is fair 50% average. s/p repair Ascending Aortic Aneurysm. Last BM 03/25; receiving routine bowel care. Patient drinks protein supplements at home, recommend to send ensure enlive with meals in view of suboptimal PO intake. Recommend: 1. continue no concentrated sweets diet 2. to send ensure enlive with meals 3. routine bowel care 4. wt per rx Addendum: 03/25/20 at [address] Amended: Links added.
--- NOTE | 2020-03-25 21:45 | NUR ---
pt inc of urine and skin care diane after Rt left the room wicc put in place after dry flows a changed skin care done.
[2020-03-25 22:00] VITALS: BP 135/74
--- NOTE | 2020-03-26 | NUR ---
resting eyes closed without changes at this time.
--- NOTE | 2020-03-26 01:15 | NUR ---
up to bedside commode to void. assisted back to bed and wicc replaced to comfort and repositioned in bed to comfort.
--- NOTE | 2020-03-26 01:42 | NUR ---
vital done vss positioned to comfort.
[2020-03-26 01:50] VITALS: BP 115/55
--- NOTE | 2020-03-26 03:20 | NUR ---
up bsc tolerated well.
[2020-03-26 05:48] LABS: ALBUMIN 2.6 G/DL (3.4-5.0); ANION GAP 5 (8-16); BLOOD UREA NITROGEN 14 MG/DL (7-18); BUN/CREATININE RATIO 14.9 (6.6-38.0); CALCIUM 8.5 MG/DL (8.5-10.1); CHLORIDE 106 MMOL/L (99-107); CREATININE 0.94 MG/DL (0.40-0.90); GLUCOSE 102 MG/DL (70-104); POTASSIUM 4.3 MMOL/L (3.5-5.1); SODIUM 145 MMOL/L (135-145); TOTAL CARBON DIOXIDE 34.5 MMOL/L (24-32); eGFR 57 ML/MIN
--- NOTE | 2020-03-26 06:47 | NUR ---
Problems reprioritized. Patient report given, questions answered & plan of care reviewed with Christina Wan. Addendum: 03/26/20 at 0648 by Mindy Haile RN Amended: Links added.
[2020-03-26] MEDS ORDERED: lactose-reduced food (Ensure Enlive) - 237ml bottle PO SCH (08:00)
--- NOTE | 2020-03-26 08:31 | NUR ---
CASE MANAGEMENT PAGED: 311: EMMIE [facility]
[2020-03-26] MEDS ORDERED: ASPI-1071 PO (08:42)
[2020-03-26] MEDS ORDERED: SENN-166 PO (08:42)
[2020-03-26] MEDS ORDERED: HYDR-4353 PO (08:42)
[2020-03-26] MEDS ORDERED: AMIO200T61 PO (08:42)
[2020-03-26] MEDS: sennosides/docusate sodium tablet PO SCH (09:25)
[2020-03-26] MEDS: aspirin 81mg tablet.DR PO SCH (09:25)
[2020-03-26] MEDS: potassium Cl 20 mEq SR tablet PO SCH (09:25)
[2020-03-26] MEDS: magnesium Cl slow-release 64mg tablet PO SCH (09:25)
[2020-03-26] MEDS: atorvastatin 10mg tablet PO SCH (09:26)
[2020-03-26] MEDS: amiodarone 200mg tablet PO SCH (09:26)
[2020-03-26] MEDS: oxybutynin 5mg tablet PO SCH (09:26)
[2020-03-26] MEDS: amLODIPine 5mg tablet PO SCH (09:26)
[2020-03-26] MEDS: HYDROchlorothiazide 25mg tablet PO SCH (09:26)
[2020-03-26] MEDS: citalopram 20mg tablet PO SCH (09:26)
[2020-03-26] MEDS: pantoprazole 40mg Tablet.DR PO SCH (09:26)
== END 2020-03-26 12:44 | disposition home health service (06) | DRG 220 ==
LOC: PAS IN 05:09 → EDSTATUS 07:30 → ICU 2S 12:21 → MED 3N 03-22 20:00
PROVIDERS: ADMIT Thoracic Surgery (Cardiothoracic Vascular Surgery); ATTEND Thoracic Surgery (Cardiothoracic Vascular Surgery)
PROC: 02QF0ZZ Repair Aortic Valve, Open Approach (ICD-10-PCS; 2020-03-20)
PROC: B24BZZ4 Ultrasonography of Heart with Aorta, Transesophageal (ICD-10-PCS; 2020-03-20)
PROC: 03HY32Z Insertion of Monitoring Device into Upper Artery, Percutaneous Approach (ICD-10-PCS; 2020-03-20)
PROC: 30233M1 Transfusion of Nonautologous Plasma Cryoprecipitate into Peripheral Vein, Percutaneous Approach (ICD-10-PCS; 2020-03-20)
PROC: 02RX0JZ Replacement of Thoracic Aorta, Ascending/Arch with Synthetic Substitute, Open Approach (ICD-10-PCS; principal; 2020-03-20 07:55)
DX: I71.2 Thoracic aortic aneurysm, without rupture (principal); I50.32 Chronic diastolic (congestive) heart failure; I11.0 Hypertensive heart disease with heart failure; I35.1 Nonrheumatic aortic (valve) insufficiency; I48.91 Unspecified atrial fibrillation; Z80.9 Family history of malignant neoplasm, unspecified; Z85.828 Personal history of other malignant neoplasm of skin; Z90.710 Acquired absence of both cervix and uterus
CPT/HCPCS: 0232T; 93312; 93325; 36415; 36430; 36600; 71045; 71046; 80048; 80053; 81001; 82330; 82435; 82803; 82947; 82948; 83036; 83735; 83880; 84100; 84132; 84295; 85018; 85025; 85347; 85384; 85610; 85730; 86885; 86900; 86901; 86920; 87081; 93005; 93880; 93971; 94002; 94003; 94060; 94640; 94668; 94760; 97110; 97116; 97161; 97530; A4618; A6258; A6402; A6449; A7048; C1713; C1768; C9113; C9250; G0378; J0690; J1644; J1815; J1940; J2001; J2060; J2150; J2250; J2270; J2370; J2597; J2704; J2720; J2930; J3370; J3475; J3480; J3490; J7030; J7040; J7050; J7060; J7120; P9012; P9045; P9047

== ENCOUNTER 2020-03-20 05:48 | Emergency (ER) | payer OTHER ==
[~2020-03-20] VITALS: Ht 160 cm; Wt 81.8 kg
[~2020-03-20 05:48] MED LIST changes: -albuterol 2.5 MG/3 ML nebule ONE; -ringers solution, lacted 1,000 ML IV SCH
[2020-03-20 06:56] VITALS: BP 136/72
== END 2020-03-20 06:59 | disposition home or self-care (01) ==
LOC: ER 05:49
DX: S20.212A Contusion of left front wall of thorax, initial encounter (principal); Z98.890 Other specified postprocedural states; Z91.013 Allergy to seafood; Z79.899 Other long term (current) drug therapy; W18.39XA Other fall on same level, initial encounter; Y93.89 Activity, other specified; Y92.89 Other specified places as the place of occurrence of the external cause; Y99.8 Other external cause status
CPT/HCPCS: 71101; 99284

== ENCOUNTER 2024-07-13 13:38 | Emergency (ER) | payer MEDICARE, OTHER ==
[~2024-07-13] VITALS: Ht 157.5 cm; Wt 81.0 kg
[~2024-07-13 13:38] MED LIST changes: -AMLO10TA4 PO; +BUPR-561 PO; -HCTZ25T PO; -HYDR-4069 PO; -LOSA25TA96 PO; -NEBI20TA2 PO; +NEBI20TA4 PO; +SERT-433 PO
[2024-07-13 13:41] VITALS: TEMP 98.5
[2024-07-13 15:53] LABS: BASOPHILS # (AUTO) 0.1 X10'3 (0-0.2); BASOPHILS % (AUTO) 0.5 % (0-1); EOSINOPHILS # (AUTO) 0.3 X10'3 (0-0.9); EOSINOPHILS % (AUTO) 2.5 % (0-6); HEMATOCRIT 41.5 % (35.0-45.0); HEMOGLOBIN 13.5 g/dl (12.0-16.0); LYMPHOCYTES # (AUTO) 2.3 X10'3 (1.1-4.8); LYMPHOCYTES % (AUTO) 22.1 % (21-51); MEAN CORPUSCULAR HEMOGLOBIN 30.6 PG (27.0-31.0); MEAN CORPUSCULAR HGB CONC 32.5 g/dL (33.0-36.5); MEAN CORPUSCULAR VOLUME 94.2 FL (78-98); MEAN PLATELET VOLUME 8.6 FL (7.4-10.4); MONOCYTES # (AUTO) 0.7 X10'3 (0-0.9); NEUTROPHILS % (AUTO) 67.9 % (42-75); PLATELET COUNT 195 X10'3 (140-440); RED CELL DISTRIBUTION WIDTH 14.7 % (11.5-14.5); WHITE BLOOD COUNT 10.4 X10'3 (4.5-11.0)
[2024-07-13 16:10] LABS: ALBUMIN 3.2 G/DL (3.4-5.0); ANION GAP 5 (8-16); BLOOD UREA NITROGEN 31 MG/DL (7-18); BUN/CREATININE RATIO 26.3 (10.0-20.0); CHLORIDE 105 MMOL/L (99-107); CREATININE 1.18 MG/DL (0.40-0.90); GLUCOSE 116 MG/DL (70-104); POTASSIUM 3.8 MMOL/L (3.5-5.1); SODIUM 143 MMOL/L (135-145); TOTAL CARBON DIOXIDE 32.6 MMOL/L (24-32); eCRCL 27 ML/MIN; eGFR 43 ML/MIN
[2024-07-13 16:19] LABS: BILIRUBIN,URINE SMALL (Neg); CLARITY,URINE SLIGHTLY CLOUDY (Clear); COLOR,URINE YELLOW (Yellow); GLUCOSE, URINE NEGATIVE (Neg); KETONES,URINE NEGATIVE (Neg); LEUKOCYTE ESTERASE ,URINE SMALL (Neg); OCCULT BLOOD,URINE NEGATIVE (Neg); PH,URINE 5.5 (4.8-8.0); PROTEIN,URINE NEGATIVE (Neg); UROBILINOGEN,URINE 0.2 E.U/dL (0.2-1.0)
[2024-07-13 17:18] LABS: UA COLLECTION TYPE FOLEY CATH
[2024-07-13 17:21] LABS: NITRITES, URINE POSITIVE (Neg)
[2024-07-13 17:31] LABS: BACTERIA,URINE 4+ /HPF (Neg); CAL OXALATE CRYSTALS FEW /HPF (NEGATIVE); MUCUS STRANDS MODERATE /LPF (Neg); RBC,URINE 0-2 /HPF (0-2); SQUAMOUS EPITHELIAL CELL,UR MODERATE /LPF (FEW); TRANSITIONAL EPI CELLS,URINE FEW /HPF; WBC,URINE 50-100 /HPF (0-4)
[2024-07-13] MEDS ORDERED: CIPR250T4 PO (17:37)
[2024-07-13] MEDS: levoFLOXACIN-Levaquin 250mg/D5 50 ML IV ONE (17:58)
[2024-07-13 21:54] VITALS: BP 181/98; PULSE 78; RESP 16; O2SAT 98
== END 2024-07-13 19:11 | disposition home or self-care (01) ==
LOC: ER 13:39
DX: N39.0 Urinary tract infection, site not specified (principal); Z91.018 Allergy to other foods; Z79.899 Other long term (current) drug therapy; Z79.2 Long term (current) use of antibiotics
CPT/HCPCS: 36415; 71045; 80048; 81001; 83735; 84145; 85025; 87077; 87088; 87186; 93005; 96365; 99285; J1956; J7030

== ENCOUNTER 2025-03-12 19:27 | Inpatient (IN) | payer MEDICARE, OTHER ==
[~2025-03-12] VITALS: Ht 160 cm; Wt 77.3 kg
[~2025-03-12 19:27] MED LIST changes: -BUPR-561 PO; +BUPR-726 PO; +CITA-178 PO; -CITA20TA28 PO
--- NOTE | 2025-03-12 19:40 | Physician Documentation ---
History of Present Illness ~ Chief Complaint: Leg Pain Stated Complaint: LEG PAIN Time Seen by MD: 19:34 Primary Medical Doctor: Fei Potts MD HPI This is a very pleasant 85-year-old female presents for evaluation of right hip pain after falling five days ago. Evidently she did not seek medical attention at the time, how ever she had an outpatient x-ray done earlier at her house and was advised by the x-ray tech to go to the ER. She reports that ever since the fall her right lower extremity was extremely painful, especially with the any range of motion. Not able to bear weight on that extremity. Palliated with the position of comfort. Did not attempt to treat it. Denies head strike. Denies blood thinners. She reports prior history of TAVR and right hip fracture status post nail Tetanus witin 5 years: No Medication Reconciliation Allergies: Coded Allergies: shrimp (Verified Allergy, Severe, THROAT EDEMA, 03/12/25) Scheduled Bupropion HCl (Bupropion Xl), 1 TAB PO DAILY, (Reported) Citalopram Hydrobromide* (Celexa*), 1 TAB PO DAILY, (Reported) Nebivolol Hcl (Bystolic), 1 TAB PO BID, (Reported) Sertraline HCl (Sertraline HCl), 1 TAB PO DAILY, (Reported) Solifenacin Succinate (Vesicare), 10 MG PO DAILY, (Reported) Past Medical History Past Medical History: *CARDIOVASCULAR* Past Surgical History: other Drug Use: none Lives In: Home Review of Systems ROS 10 point review of systems was performed and unless noted above in HPI is negative for acute process/complaint. Physical Exam Vital Signs: Temperature: 98.6, Heart Rate: 84, Respiratory Rate: 18, BP: 165/92, Pulse Oximetry: 93, Weight: 77.270 Physical Exam Physical examination: GENERAL: Awake, alert, oriented, GCS 15, no apparent distress, non-toxic appea ring, answers questions, follows commands appropriately. HEENT: Atraumatic, normocephalic, pupils equal, extraocular muscles intact Active gross movements, sclerae anicteric, mucus membranes moist, no stridor. NECK: Midline, no JVD CARDIOVASCULAR: Good skin perfusion without evidence of pallor, mottling. PULMONARY: Nonlabored, symmetric chest rise, no audible wheezing, no accessory muscle use, no respiratory distress, speaking in full sentences. GASTROINTESTINAL: Not distended. NEUROLOGIC: Lucid with normal mental status. Normal facial symmetry. Moves all extremities symmetrically and with purpose. No truncal ataxia. Speech is fluid without evidence of dysarthria or aphasia, no focal deficits appreciated. EXTREMITIES: Acute deformities Skin: warm, dry PSYCHIATRIC: Normal affect, normal insight, normal concentration. Focused exam: [] Right lower extremity shortened, externally rotated, palpable pulses and neurovascularly intact distally. Range of motion limited by pain Progress Results/Orders Results/Orders Orders - MEREDITH ODELL DO Hip Unilateral 2 Views (03/12/25 19:34) Chest,Single View (03/12/25 ) Completed Orders - MEREDITH ODELL DO Electrocardiogram (03/12/25 19:34) Cbc/Diff (03/12/25 19:34) Pt Inr (03/12/25 19:34) PTT (03/12/25 19:34) PBNP (03/12/25 19:34) MG (03/12/25 19:34) Hs Troponin I W Calculations (03/12/25 19:34) CMP (03/12/25 19:34) Chest,Single View (03/12/25 ) Vital Signs 03/12/25 03/12/25 19:28 19:56 Temp 98.6 Pulse 84 Resp 18 19 B/P (MAP) 165/92 Pulse Ox 93 Laboratory Tests Test 03/12/25 19:53 White Blood Count 10.1 Red Blood Count 4.31 Hemoglobin 12.5 Hematocrit 38.1 Mean Corpuscular Volume 88.3 Mean Corpuscular Hemoglobin 29.1 Mean Corpuscular Hemoglobin Concent 32.9 L Red Cell Distribution Width 15.3 H Platelet Count 174 Mean Platelet Volume 8.6 Neutrophils (%) (Auto) 60.9 Lymphocytes (%) (Auto) 26.1 Monocytes (%) (Auto) 8.8 Eosinophils (%) (Auto) 3.5 Basophils (%) (Auto) 0.7 Neutrophils # (Auto) 6.1 Lymphocytes # (Auto) 2.6 Monocytes # (Auto) 0.9 Eosinophils # (Auto) 0.3 Basophils # (Auto) 0.1 CBC Comment Prothrombin Time 10.3 INR International Normalized Ratio 1.0 Activated Partial Thromboplast Time 27 Coagulation Comments Sodium Level 144 Potassium Level 3.4 L Chloride Level 109 H Carbon Dioxide Level 27.7 Anion Gap 7 L Blood Urea Nitrogen 25 H Creatinine 0.71 Estimated GFR/1.73 m2 78 BUN/Creatinine Ratio 35.2 H Glucose Level 105 H Calcium Level 9.0 Magnesium Level 2.0 Total Bilirubin 0.5 Aspartate Amino Transf (AST/SGOT) 15 Alanine Aminotransferase (ALT/SGPT) 14 Alkaline Phosphatase 79 Troponin I High Sensitivity 14 Pro-B-Type Natriuretic Peptide 2112 H Total Protein 6.4 Albumin 3.1 L Globulin 3.3 Albumin/Globulin Ratio 0.9 L Chemistry Comments EKG/XRAY/CT/US/VASC/MRI EKG : Additional Comment Preprocedure EKG was obtained and interpreted by myself shows sinus rhythm of 86, normal OH interval, narrow QRS, no QT prolongation, normal axis, no STEMI. Early R-wave progression noted. Medical Decision Making Findings Facility Status: ED Holds, RME process The plan was discussed with the patient, who demonstrates clear understanding of the plan and is in agreement with the plan unless otherwise noted in the chart. All questions have been answered, all concerns were addressed unless otherwise documented. I was available throughout their ED stay for frequent reassessment and questions. Differential Diagnoses (considered and possible or likely): [Ground level fall, acute traumatic pain, right hip fracture, less likely mechanical hip dislocation] ??Differential Diagnoses (considered and unlikely, not requiring evaluation currently): [No evidence of neurovascular damage] MDM Data Please see HPI for the following: Independent Historians and external Records Review. Historian: [Patient] Independent Historians: ?[eMS] Medication Management: [Reviewed medication list] Social History and determinants: [Reviewed] Please see the body of the note for the following: Any independent interpretations of ECG, imaging studies. All vitals signs/haemodynamics, ordered tests were independently reviewed and interpreted by myself. Nursing triage complaint and vitals reviewed, additional nursing notes were reviewed as available and I agree unless otherwise noted or documented in contradiction in the chart Vital Signs: Independently reviewed Labs: Independently interpreted Imaging: Independently interpreted Old Medical Records: Independently reviewed, see HPI for relevant summary and information Pulse Oximetry: [97%] interpreted as [normal on room air] by me [Courtesy Bus Driver: [Regular Rate, Regular rhythm, no ectopy, NSR] reviewed and interpreted by me] Additionally notably showing: [Hemodynamics reviewed. The patient is not febrile, not tachycardic, no evidence of hypotension respiratory distress. CBC normal coagulation panel is unremarkable. Metabolic panel notable for dehydration and elevated BNP. Troponin is negative. Imaging was obtained show ing minimal interstitial edema and the chest x-ray. Patient has her own x-rays which he would be an uploaded into the system showing a spiral periprosthetic femur fracture.] Tests considered but not ordered include: [Extremity x-rays are being uploaded into the system from outpatient imaging system] Social Determinants of Health Impact: Patient was [facility] [place] to healthcare due to below par ratio of patient to medical providers. [] Comorbid Conditions Impacting Present Evaluation and Care/Treatment: [Multiple, see list] Management Discussions with other Healthcare Providers: [Hospitalist regarding admission] Treatment and Disposition Medication Management (Given or considered): [Pain management]. See EMR for details Consideration for Hospitalization/Escalation/Deescalation of Care: Admission for observation has been considered, for further management of the periprosthetic fracture ?ED Course:?[No clinical deterioration] ?Shared decision making:?[] Code status:?FULL Please see the full Electronic Medical Record for full details of nursing documentation, medications list, other records of complete past medical history and conditions, vital signs, laboratory studies, and any radiologic study interpretations by radiologists. Portions of this note were completed using [employer] dictation software and as a result there may exist minor errors in spelling. I have reviewed elements of past family and social history and agree as included in note. Departure Disposition: ADMITTED INPATIENT Impression: Primary Impression: Ground-level fall Additional Impressions: Acute traumatic pain Closed right hip fracture Condition: Improved Referrals: NO PRIMARY CARE PROVIDER (PCP) Signature Scribe Signature: No scribe Attestation: This note accurately reflects clinical decisions, work performed by myself, DO CASS Orozco NICHOLAS M DO March 12, 2025 19:40
--- NOTE | 2025-03-12 19:41 | ELECTROCARDIOGRAPH REPORT ---
[facility] Test Date: 2025-03-12 Test Time: 19:38:21 Pat Name: LULU OLEA Department: [facility]- Patient ID: [facility]-[id number] Room: [place] [address] Gender: F Transitions Rn Care Coordinator: : 1940 Requested By: MEREDITH ODELL Order Number: [id number] Reading MD: Dr. Alcides Mckeon Measurements Intervals [place] Rate: 86 P: -40 IL: 150 QRS: -32 QRSD: 105 T: 75 QT: 389 QTc: 466 Interpretive Statements Sinus rhythm Left axis deviation Abnormal R-wave progression, early transition Minimal ST depression, lateral leads Baseline wander in lead(s) III Electronically Signed On 03-13-2025 6:34:[address] Alcides Mckeon Please click the below link to view image of tracing.
[2025-03-12 20:04] LABS: BASOPHILS # (AUTO) 0.1 X10'3 (0-0.2); BASOPHILS % (AUTO) 0.7 % (0-1); EOSINOPHILS # (AUTO) 0.3 X10'3 (0-0.9); HEMATOCRIT 38.1 % (35.0-45.0); LYMPHOCYTES # (AUTO) 2.6 X10'3 (1.1-4.8); RED CELL DISTRIBUTION WIDTH 15.3 % (11.5-14.5); WHITE BLOOD COUNT 10.1 X10'3 (4.5-11.0)
[2025-03-12 20:05] LABS: EOSINOPHILS % (AUTO) 3.5 % (0-6); HEMOGLOBIN 12.5 g/dl (12.0-16.0); LYMPHOCYTES % (AUTO) 26.1 % (21-51); MEAN CORPUSCULAR HEMOGLOBIN 29.1 PG (27.0-31.0); MEAN CORPUSCULAR HGB CONC 32.9 g/dL (33.0-36.5); MEAN CORPUSCULAR VOLUME 88.3 FL (78-98); MEAN PLATELET VOLUME 8.6 FL (7.4-10.4); MONOCYTES # (AUTO) 0.9 X10'3 (0-0.9); MONOCYTES % (AUTO) 8.8 % (2-12); NEUTROPHILS # (AUTO) 6.1 X10'3 (1.8-7.7); NEUTROPHILS % (AUTO) 60.9 % (42-75); PLATELET COUNT 174 X10'3 (140-440); RED BLOOD COUNT 4.31 X10'6 (4.20-5.60)
[2025-03-12 20:21] LABS: APTT 27 SECONDS (22-32); PROTHROMBIN TIME 10.3 SECONDS (9.0-12.0)
[2025-03-12 20:23] LABS: ALANINE AMINOTRANSFERASE 14 U/L (12-78); ALBUMIN 3.1 G/DL (3.4-5.0); ALBUMIN/GLOBULIN RATIO 0.9 (1.1-1.5); ALKALINE PHOSPHATASE 79 IU/L (46-116); ANION GAP 7 (8-16); ASPARTATE AMINO TRANSFERASE 15 U/L (10-37); BILIRUBIN,TOTAL 0.5 MG/DL (0.1-1.0); BLOOD UREA NITROGEN 25 MG/DL (7-18); BUN/CREATININE RATIO 35.2 (10.0-20.0); CHLORIDE 109 MMOL/L (99-107); CREATININE 0.71 MG/DL (0.40-0.90); GLUCOSE 105 MG/DL (70-104); POTASSIUM 3.4 MMOL/L (3.5-5.1); SODIUM 144 MMOL/L (135-145); TOTAL CARBON DIOXIDE 27.7 MMOL/L (24-32); TOTAL PROTEIN 6.4 G/DL (6.4-8.2); eCRCL 46 ML/MIN; eGFR 78 ML/MIN
[2025-03-12 20:30] LABS: PRO BRAIN NATRIURETIC PEPTIDE 2112 PG/ML (0-450)
--- NOTE | 2025-03-12 21:01 | RADIOLOGY REPORT ---
CHEST RADIOGRAPH Indication: Preoperative Technique: Single frontal view of the chest was obtained COMPARISON: DI CHEST,SINGLE VIEW on DOS: 07/13/24 FINDINGS: Lines and Tubes: None Lungs: Minimal interstitial prominence. No focal consolidation. Pleura: No effusion. No pneumothorax. Cardiomediastinal contours: Mild enlargement of the cardiac silhouette. Atherosclerosis at the aortic arch. Median sternotomy wires. Bones: Moderate to severe degenerative changes at the glenohumeral joints. IMPRESSION: Minimal interstitial prominence may represent bronchovascular crowding or pulmonary vascular congesti on. No focal consolidation.
[2025-03-12] MEDS ORDERED: magnesium Cl slow-release 64mg tablet PO PRN (21:45)
[2025-03-12] MEDS ORDERED: magnesium hydroxide 30ml (MOM) UD suspension PO PRN (21:45)
[2025-03-12] MEDS ORDERED: potassium Cl 40MEQ/1/2NS 520ml 520 ML IV PRN (21:45)
[2025-03-12] MEDS ORDERED: ondansetron/PF 4mg/2ml inj IV PRN (21:45)
[2025-03-12] MEDS ORDERED: mag hydrox/Alum hydrox/simeth 30ml oral suspension PO PRN (21:45)
[2025-03-12] MEDS ORDERED: magnesium sulf-water 2g/50mL 50 ML IV PRN (21:45)
[2025-03-12] MEDS ORDERED: magnesium sulf-water 4G/100mL 100 ML IV PRN (21:45)
[2025-03-12] MEDS ORDERED: potassium Cl 20 mEq SR tablet PO PRN (21:45)
--- NOTE | 2025-03-12 22:05 | HISTORY AND PHYSICAL-Residence ---
History & Physical Providers to CC Resident Creating Document: LUIS TORRES RES ~ History of Present Illness Primary Medical Doctor: ANNETTA Reason for Admit\Complaint: Hip fracture History of Present Illness 85 years old female presented to the ED after a mechanical fall. Patient reported he fell about five days ago from wheelchair on her hip and reported moderate he pain however he did not seek medical attention at this time. Patient had home x-ray today at her house which reported he fracture and advised her to visit hospital. Patient had history of right hip internal contrary femoral fracture in May status post ORIF with intramedullary by Dr. Saha. Patient transferred to rehab and after discharge from rehab she was using wheelchair and walker for ambulation. Patient reported she just started more physical activity recently and unfortunately she fell from her wheelchair last Friday. She denied any tingling sensation muscle weakness or any head trauma when she fell. Allergies: Coded Allergies: shrimp (Verified Allergy, Severe, THROAT EDEMA, 03/12/25) Home Medications Home Medications Active Reported Bupropion Xl (Bupropion HCl) 150 Mg Tab.er.24h 1 Tab PO DAILY Sertraline HCl 50 Mg Tablet 1 Tab PO DAILY Celexa* (Citalopram Hydrobromide) 20 Mg Tablet 1 Tab PO DAILY 30 Days Bystolic (Nebivolol Hcl) 20 Mg Tablet 1 Tab PO BID 30 Days Vesicare (Solifenacin Succinate) 10 Mg Tablet 10 Mg PO DAILY 30 Days Past Medical History Past Medical History Right femoral neck fracture status post ORIF in 04/2024 Hypertension UTI Mid ascending aortic aneurysm status post repair Past Surgical History Surgical History Comment Right femoral neck fracture status post ORIF in 04/2024 Mid ascending aortic aneurysm status post repair 2019 Past Social History Smoking: Non-Smoker Alcohol Use: Rarely Drug Use: None Lives In: Home ROS ROS The history of present illness included a review of system, which yielded relevant positives and negatives Exam Vitals: Vital Signs Date Time Temp Pulse Resp B/P (MAP) Pulse Ox O2 Delivery O2 Flow Rate FiO2 03/12/25 19:56 19 03/12/25 19:28 98.6 84 165/92 93 General: General: Awake and Alert, no acute distress. HEENT: Conjunctiva pink, Sclera clear, Mucus Membranes moist. Neck: Supple without masses and tenderness. Resp: Diminished breath sounds bilaterally Heart: Regular Rate and rhythm, normal S1 and S2 without murmur Abdomen: Soft and non tender no organomegaly Extremities: Left lower extremity is on external rotation rotation, limited range of motion due to pain, no any sensation deficit pulse is intact bilaterally Skin: Warm and Dry. Neurological: Speech is clear, alert, and oriented x 4, no gross neurological deficits Diagnostic Data Last Recorded Lab Results: 03/12/25195203/12/251952 Diagnostic Data: Laboratory Tests Test 03/12/25 19:53 Prothrombin Time 10.3 SECONDS (9.0-12.0) INR International Normalized Ratio 1.0 INR Activated Partial Thromboplast Time 27 SECONDS (22-32) Coagulation Comments Advance Care Planning Advanced Care plannin - 30 Minutes Additional Plan 85 years old female with history of hypertension presented to the ED for mechanical fall Mechanical fall Patient had multiple x-ray as ED physician reported and they are trying to upload the imaging which showed a spiral periprosthetic femoral fracture. Patient did not reported any pain at rest, no neurological symptoms, pulses intact We will consult Dr. Saha in AM Hypertension History of aortic aneurysm status post repair in 2019 Chronic heart failure with preserved ejection fraction Checks x-ray showed: Minimal interstitial prominence may represent bronchovascular crowding or pulmonary vascular congestion. No focal consolidation. elevated proBNP 1999, same level as 2020 Echocardiography in 2023: Normal LV size and function. Mild concentric hypertrophy. Overall LVEF is 60-65%. Right ventricle is mild to moderately dilated with adequate function. Estimated PA systolic pressure is 27 mmHg. Left atrium is moderately dilated. Trileaflet AV appears sclerotic without stenosis. Trace insufficiency. Moderate MV annular calcification without stenosis. Trace regurgitation. TV appears normal with trace regurgitation. 38 MM Hemashield [place] Ascending Aorta Graft in place. Appears to be well seated. Normal pericardium. No pericardial effusion seen. Continue nebivolol home medication 20 b.i.d. Lasix 20 stat, patient need to re- evaluate tomorrow for any diuretic Needs GDM T optimization Code Status: DNR DVT prophylaxis: SCDS Analgesia/sedation: Tylenol Line/tube: Peripheral GI prophylaxis: None Nutrition: NPO after midnight Prognosis: Guarded Disposition: Continue monitoring patient in ortho floor NPO after midnight Luis Torres MD Internal Medicine Resident I saw and discussed the pt with the resident team Pt is an 85 yr old woman s/p fall will have Ortho see her in AM Date of Service: March 12, 2025 Billing Provider: MATT TEIXEIRA MD, ELAHE, RES March 12, 2025 22:05 MATT TEIXEIAR MD Mar 13, 2025 08:12
[2025-03-12 22:24] LABS: HEMOGLOBIN A1C 5.4 % (4.5-6.2)
[2025-03-12] MEDS: normal saline 1000ml 1,000 ML IV SCH (22:48)
[2025-03-13] VITALS (13 sets, daily range): BP systolic 94–183; BP diastolic 47–132; PULSE 78–90; RESP 14–18; TEMP 96.9–98.4; O2SAT 92–99
[2025-03-13] MEDS: furosemide 10 MG/1 ML 10ml inj IV ONE (00:37)
[2025-03-13] MEDS: potassium Cl 20 mEq SR tablet PO PRN (02:25)
[2025-03-13] MEDS: acetaminophen 325mg tablet PO PRN (02:26)
--- NOTE | 2025-03-13 06:53 | RADIOLOGY REPORT ---
CLINICAL INDICATION: Mechanical fall TECHNIQUE: DI HIP, 1 VIEW WITH PELVIS Comparison: None FINDINGS/IMPRESSION: : Hardware is present within the right femoral neck and proximal right femur without evidence of compli cation. No evidence of acute periprosthetic fracture. Subacute appearing right superior and inferior pubic rami fractures are noted. No evidence of acute f racture. Moderate degenerative changes within the left hip.
--- NOTE | 2025-03-13 06:54 | RADIOLOGY REPORT ---
CLINICAL INDICATION: Mechanical fall TECHNIQUE: DI KNEE LIMITED (AP/LAT) Comparison: None FINDINGS/IMPRESSION: : Femoral intramedullary keshia. Mildly displaced obliquely oriented distal femoral diaphyseal periprosthe tic fracture noted. 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
[2025-03-13 07:15] LABS: BASOPHILS # (AUTO) 0.1 X10'3 (0-0.2); BASOPHILS % (AUTO) 0.8 % (0-1); EOSINOPHILS # (AUTO) 0.4 X10'3 (0-0.9); LYMPHOCYTES # (AUTO) 2.5 X10'3 (1.1-4.8); MEAN PLATELET VOLUME 8.7 FL (7.4-10.4); MONOCYTES # (AUTO) 0.8 X10'3 (0-0.9); NEUTROPHILS # (AUTO) 5.3 X10'3 (1.8-7.7); RED CELL DISTRIBUTION WIDTH 15.3 % (11.5-14.5); WHITE BLOOD COUNT 9.1 X10'3 (4.5-11.0)
[2025-03-13 07:17] LABS: EOSINOPHILS % (AUTO) 4.2 % (0-6); HEMATOCRIT 38.1 % (35.0-45.0); HEMOGLOBIN 12.6 g/dl (12.0-16.0); LYMPHOCYTES % (AUTO) 27.7 % (21-51); MEAN CORPUSCULAR HEMOGLOBIN 29.2 PG (27.0-31.0); MEAN CORPUSCULAR HGB CONC 33.1 g/dL (33.0-36.5); MEAN CORPUSCULAR VOLUME 88.3 FL (78-98); MONOCYTES % (AUTO) 8.3 % (2-12); PLATELET COUNT 165 X10'3 (140-440); RED BLOOD COUNT 4.31 X10'6 (4.20-5.60)
[2025-03-13 07:43] LABS: ALANINE AMINOTRANSFERASE 14 U/L (12-78); ALBUMIN 3.1 G/DL (3.4-5.0); ALKALINE PHOSPHATASE 75 IU/L (46-116); ANION GAP 6 (8-16); ASPARTATE AMINO TRANSFERASE 16 U/L (10-37); BILIRUBIN,TOTAL 0.6 MG/DL (0.1-1.0); BLOOD UREA NITROGEN 24 MG/DL (7-18); BUN/CREATININE RATIO 31.6 (10.0-20.0); CALCIUM 8.8 MG/DL (8.5-10.1); CHLORIDE 107 MMOL/L (99-107); CHOL/HDL RATIO 3.8 (0.00-4.99); CHOLESTEROL 170 MG/DL (0-200); CREATININE 0.76 MG/DL (0.40-0.90); GLUCOSE 107 MG/DL (70-104); HDL CHOLESTEROL 45 MG/DL (35-60); LDL CHOLESTEROL 101 MG/DL (50-100); POTASSIUM 3.5 MMOL/L (3.5-5.1); SODIUM 143 MMOL/L (135-145); TOTAL CARBON DIOXIDE 30.4 MMOL/L (24-32); TOTAL PROTEIN 6.2 G/DL (6.4-8.2); TRIGLYCERIDES 119 MG/DL (20-135); eCRCL 43 ML/MIN; eGFR 72 ML/MIN
[2025-03-13] MEDS: docusate sod 100mg capsule PO SCH (08:00)
[2025-03-13] MEDS: K and/or MAG REPLACEMENT MC SCH (08:00)
[2025-03-13 08:47] LABS: PLATELET ESTIMATE NORMAL; TOTAL CELLS COUNTED 100
[2025-03-13] MEDS ORDERED: hydrALAZINE 20mg/ml inj. IV PRN (09:35)
--- NOTE | 2025-03-13 09:41 | PROGRESS NOTE ---
Daily Progress Note Providers to CC ~ Antibiotic Timeout Antibiotic Ordered?: No Subjective No acute events overnight. Patient examined at bedside. No new complaints, not in acute distress. Patient denies chest pain, sob, palpitations, abdominal pain, n/v/d. No pain at rest, no neurological symptoms, pulses intact. Vss, labs unremarkable. Xray reveals right femoral neck and proximal femur fracture, subacute right superior and inferior pubic fracture, mildly displaced obliquely oriented distal femoral diaphyseal periprosthetic fracture. Consulted Dr. Saha. OR tomorrow. Objective Vital Signs Date Time Temp Pulse Resp B/P (MAP) Pulse Ox O2 Delivery O2 Flow Rate FiO2 03/13/25 06:00 96.9 78 15 152/91 (111) 92 Room Air 03/13/25 03:44 0.0 Result Diagram: 03/13/2541 03/13/25640 Physical Exam General: Generalized weakness, A&Ox 3, NAD HEENT: Normocephalic, PERRLA Neck: Supple, trachea midline, no JVD Chest: Clear to auscultation bilaterally Cardiovascular: RRR, S1&S2 GI: Soft and nontender Extremities: No cyanosis/clubbing/or edema GAS DERRICK OPERATOR: CN II-XII intact, no focal deficits Musculoskeletal: Right hip externally rotated Skin: Warm and intact Coagulation Studies Laboratory Tests Test 03/12/25 19:53 Prothrombin Time 10.3 SECONDS (9.0-12.0) INR International Normalized Ratio 1.0 INR Activated Partial Thromboplast Time 27 SECONDS (22-32) Coagulation Comments Problem\Assessment\Plan 85 years old female with history of hypertension presented to the ED for mechanical fall # Mechanical fall # Wheelchair bound # Hx right hip fx s/p ORIF (2023) -xray reveals right femoral neck and proximal femur fracture, subacute right superior and inferior pubic fracture, mildly displaced obliquely oriented distal femoral diaphyseal periprosthetic fracture -03/13: consulted Dr. Saha, OR tomorrow # Acute decompensated diastolic heart failure- POA # Hypertensive urgency # Hypertension # History of aortic aneurysm status post repair in 2019 -TTE in 2023: LVEF is 60-65%, RVSP 27mmHg, no significant VHD -pBNP 2099, given a dose of Lasix, hold Entresto until post-op; hydralazine; follow TTE Code Status: DNR DVT/VTE prophylaxis: SCDs Date of Service: Mar 13, 2025 Billing Provider: SHANON WEST Common Visit Codes: [id number] INP/OBS CARE(HIGH) SHANON WEST Mar 13, 2025 09:41
[2025-03-13] MEDS: metoprolol tartrate 50mg tablet PO SCH (11:15)
[2025-03-13] MEDS: hydrALAZINE 20mg/ml inj. IV STA (15:10)
[2025-03-13] MEDS: hyDRALAzine 10mg tablet PO SCH (16:00)
[2025-03-13] MEDS: labetalol 100mg tablet PO ONE ×2 (17:45→18:11)
[2025-03-13] MEDS: hydrALAZINE 20mg/ml inj. IV ONE (17:47)
[2025-03-13] MEDS: PERFLUTREN PROTEIN-A MICROSPHR (Optison) 0.22 MG/ML 3ML VIAL IV ONE (17:55)
[2025-03-13] MEDS: isosorbide dinitrate 30mg tablet PO ONE (18:12)
[2025-03-13] MEDS ORDERED: normal saline 500ml IV soln 500 ML IV ONE (18:30)
[2025-03-13] MEDS ORDERED: midodrine 5mg tablet PO PRN (18:40)
[2025-03-13] MEDS: normal saline 1000ml 1,000 ML IV ONE (18:55)
[2025-03-13] MEDS ORDERED: isosorbide dinitrate 30mg tablet PO SCH (20:00)
[2025-03-13] MEDS ORDERED: labetalol 100mg tablet PO SCH (20:00)
[2025-03-14] VITALS (24 sets, daily range): BP systolic 123–182; BP diastolic 62–88; PULSE 68–91; RESP 11–19; TEMP 96.7–98.1; O2SAT 92–99
[2025-03-14] MEDS ORDERED: hyDRALAzine 10mg tablet PO SCH
[2025-03-14 06:38] LABS: EOSINOPHILS # (AUTO) 0.2 X10'3 (0-0.9); HEMOGLOBIN 11.2 g/dl (12.0-16.0); MEAN CORPUSCULAR VOLUME 88.9 FL (78-98); MONOCYTES # (AUTO) 0.7 X10'3 (0-0.9); MONOCYTES % (AUTO) 7.3 % (2-12); WHITE BLOOD COUNT 9.4 X10'3 (4.5-11.0)
[2025-03-14 06:41] LABS: BASOPHILS # (AUTO) 0.1 X10'3 (0-0.2); BASOPHILS % (AUTO) 0.6 % (0-1); EOSINOPHILS % (AUTO) 2.6 % (0-6); HEMATOCRIT 33.6 % (35.0-45.0); LYMPHOCYTES # (AUTO) 2.8 X10'3 (1.1-4.8); LYMPHOCYTES % (AUTO) 29.5 % (21-51); MEAN CORPUSCULAR HEMOGLOBIN 29.6 PG (27.0-31.0); MEAN CORPUSCULAR HGB CONC 33.3 g/dL (33.0-36.5); MEAN PLATELET VOLUME 8.4 FL (7.4-10.4); NEUTROPHILS # (AUTO) 5.6 X10'3 (1.8-7.7); PLATELET COUNT 179 X10'3 (140-440); RED BLOOD COUNT 3.78 X10'6 (4.20-5.60); RED CELL DISTRIBUTION WIDTH 15.2 % (11.5-14.5)
[2025-03-14 06:56] LABS: ALANINE AMINOTRANSFERASE 14 U/L (12-78); ALBUMIN 2.7 G/DL (3.4-5.0); ALBUMIN/GLOBULIN RATIO 0.9 (1.1-1.5); ALKALINE PHOSPHATASE 72 IU/L (46-116); ANION GAP 6 (8-16); ASPARTATE AMINO TRANSFERASE 12 U/L (10-37); BILIRUBIN,TOTAL 0.5 MG/DL (0.1-1.0); BLOOD UREA NITROGEN 23 MG/DL (7-18); BUN/CREATININE RATIO 27.4 (10.0-20.0); CALCIUM 8.5 MG/DL (8.5-10.1); CHLORIDE 109 MMOL/L (99-107); CREATININE 0.84 MG/DL (0.40-0.90); GLUCOSE 92 MG/DL (70-104); MAGNESIUM 1.9 MG/DL (1.5-2.4); POTASSIUM 3.6 MMOL/L (3.5-5.1); SODIUM 145 MMOL/L (135-145); TOTAL CARBON DIOXIDE 30.3 MMOL/L (24-32); TOTAL PROTEIN 5.7 G/DL (6.4-8.2); eCRCL 39 ML/MIN; eGFR 64 ML/MIN
[2025-03-14] MEDS: sertraline 50mg tablet PO SCH (07:54)
--- NOTE | 2025-03-14 10:24 | CONSULTATION REPORT ---
History of Present Illness Providers to CC ~ Reason for Admit\Admit Dx: Right femoral shaft fracture Refering MD: Dr Lock History of Present Illness The patient is a 5-year-old woman known to me who had a right hip intertrochanteric fracture about six months ago with placement of a long intramedullary nail. She recently fell and x-rays show a spiral fracture around the mid shaft of the femur Allergies: Coded Allergies: shrimp (Verified Allergy, Severe, THROAT EDEMA, 03/12/25) Home Medications Home Medications Active Reported Bupropion Xl (Bupropion HCl) 150 Mg Tab.er.24h 1 Tab PO DAILY Sertraline HCl 50 Mg Tablet 1 Tab PO DAILY Celexa* (Citalopram Hydrobromide) 20 Mg Tablet 1 Tab PO DAILY 30 Days Bystolic (Nebivolol Hcl) 20 Mg Tablet 1 Tab PO BID 30 Days Vesicare (Solifenacin Succinate) 10 Mg Tablet 10 Mg PO DAILY 30 Days Physical Exam Last Vital Signs Recorded: Temperature: 96.7, Source: Oral, Heart Rate: 90, Respiratory Rate: 15, BP: 152/72, Pulse Oximetry: 96, Weight: 77.270 General Appearance: alert, no apparent distress Extremities There is some tenderness about the mid femur area. The knee and hip are nontender. Exam is otherwise unremarkable. Results Results/Orders Results/Orders X-rays show a minimally displaced spiral fracture about the mid shaft of the femur. The keshia is in place Diagram Lab Result Diagram: 03/14/25 0556 03/14/25 0556 Assessment/Plan Problems/Diagnosis: (1) Kaley-prosthetic femoral shaft fracture Additional Plan This will be easily treated with a distal interlock screw placement. The retained hardware is in good position and does not need to be replaced. The upper end of the fracture shows that it is somewhat compressed but it is solid and has not moved in many months. The patient was seen recently in the office and so there was no issues about the hip. CHARLES PEACE Jr., MD Mar 14, 2025 10:24
[2025-03-14] MEDS ORDERED: BUPIVAcaine 2.5mg/ml inj 50ml vial (contains preservative) ONE (13:13)
[2025-03-14] MEDS ORDERED: hydrALAZINE 20mg/ml inj. IV PRN ×2 (13:20→13:30)
[2025-03-14] MEDS ORDERED: sevoflurane 250ml liquid IH ONE (13:22)
--- NOTE | 2025-03-14 13:22 | PROGRESS NOTE ---
Daily Progress Note Providers to CC ~ Antibiotic Timeout Antibiotic Ordered?: Yes If Yes, Indications: intra-op prophylaxis Subjective No acute events overnight. Patient examined at bedside. No new complaints, not in acute distress. Patient denies chest pain, sob, palpitations, abdominal pain, n/v/d. No pain at rest, no neurological symptoms, pulses intact. Vss, labs unremarkable. Xray reveals right femoral neck and proximal femur fracture, subacute right superior and inferior pubic fracture, mildly displaced obliquely oriented distal femoral diaphyseal periprosthetic fracture. OR today. Objective Vital Signs Date Time Temp Pulse Resp B/P (MAP) Pulse Ox O2 Delivery O2 Flow Rate FiO2 03/14/25 10:57 82 16 96 03/14/25 08:00 Nasal Cannula 2.0 03/14/25 05:00 96.7 145/72 (96) Result Diagram: 03/14/25 0556 03/14/25 0556 Physical Exam General: Generalized weakness, A&Ox 3, NAD HEENT: Normocephalic, PERRLA Neck: Supple, trachea midline, no JVD Chest: Clear to auscultation bilaterally Cardiovascular: RRR, S1&S2 GI: Soft and nontender Extremities: No cyanosis/clubbing/or edema OCEAN CLAM BOAT CAPTAIN: CN II-XII intact, no focal deficits Musculoskeletal: Right hip externally rotated Skin: Warm and intact Coagulation Studies Laboratory Tests Test 03/12/25 19:53 Prothrombin Time 10.3 SECONDS (9.0-12.0) INR International Normalized Ratio 1.0 INR Activated Partial Thromboplast Time 27 SECONDS (22-32) Coagulation Comments Problem\Assessment\Plan 85 years old female with history of hypertension presented to the ED for mechanical fall # Mechanical fall # Wheelchair bound # Hx right hip fx s/p ORIF (2023) -xray reveals right femoral neck and proximal femur fracture, subacute right superior and inferior pubic fracture, mildly displaced obliquely oriented distal femoral diaphyseal periprosthetic fracture -03/13: consulted Dr. Saha, OR tomorrow -03/14: OR today # Acute decompensated diastolic heart failure- POA # Hypertensive urgency # Hypertension # History of aortic aneurysm status post repair in 2019 -TTE in 2023: LVEF is 60-65%, RVSP 27mmHg, no significant VHD -pBNP 2099, given a dose of Lasix, hold Entresto until post-op; hydralazine; TTE LVEF 60-65% Code Status: DNR DVT/VTE prophylaxis: SCDs Date of Service: Mar 14, 2025 Billing Provider: SHANON WEST Common Visit Codes: [id number] INP/OBS CARE(HIGH) SHANON WEST Mar 14, 2025 13:22
[2025-03-14] MEDS ORDERED: ondansetron/PF 4mg/2ml inj IV PRN (13:30)
[2025-03-14] MEDS ORDERED: morphine 2 MG/ML inj. syringe IV PRN (13:30)
[2025-03-14] MEDS ORDERED: meperidine/PF 25mg/ml syringe IV PRN (13:30)
[2025-03-14] MEDS ORDERED: labetalol 20mg/4ml (5mg/ml) syringe IV PRN (13:30)
[2025-03-14] MEDS: ringers solution, lacted 1,000 ML IV SCH (13:30)
[2025-03-14] MEDS ORDERED: HYDROmorphone/PF 0.2 MG/ML SYRINGE IV PRN ×2 (13:30)
[2025-03-14] MEDS ORDERED: proCHLORperazine 10 MG/2 ml inj IV PRN (13:30)
[2025-03-14] MEDS ORDERED: fentaNYL/PF 50MCG/1 ML 2ML syringe ONE (13:32)
[2025-03-14] MEDS ORDERED: midazolam 1 mg/ML 2ml injection ONE (13:46)
[2025-03-14] MEDS ORDERED: ondansetron/PF 4mg/2ml inj ONE (13:48)
[2025-03-14] MEDS ORDERED: ceFAZolin 1000mg inj ONE ×2 (13:48)
[2025-03-14] MEDS ORDERED: propofol inj 20 ML IV ONE (13:48)
[2025-03-14] MEDS ORDERED: dexamethasone sod phosphate 4mg/ml inj. ONE (13:48)
[2025-03-14] MEDS ORDERED: LIDOcaine 2% (20mg/ml) 5ml vial ONE (13:48)
--- NOTE | 2025-03-14 14:47 | OPERATIVE REPORT ---
Operative Report Providers to ~ Date of Procedure: Mar 14, 2025 Pre-Operative Diagnosis: Right femur fracture Post-Operative Diagnosis Right femoral fracture in the presence of an intramedullary device, periprosthetic Procedure Performed Stabilization of right femur fracture by placement of the interlocking distal screw Surgeon: Wil Saha MD Rolling Machine Operator Automatic None Anesthesiologist: Beata Oro Type of Anesthesia: General Findings: Prosthetics\Implants used: Biomet Affixus distal interlock screw x2 Estimated Blood Loss: None Specimen Removed: None Description of Procedure: The patient is a 85-year-old woman who about six months ago underwent stabilization of a right hip fracture using a long intramedullary femoral nail. She was doing well postoperatively and in fact was recently seen in the office for follow-up. Over the past few days the patient suffered a fall and had pain in the leg. X-rays showed a spiral fracture of the femoral shaft in the presence of the intramedullary nail. Surgery is indicated to stabilize the fracture. Risks and benefits were discussed with the patient. Some of the risks and details infection, bleeding, knee pain and hardware failure. She agreed to proceed. She was brought to the operating room where the anesthetic was given. The right leg was prepped and draped in usual manner with a bump under it to allow for lateral x-ray views. The imaging device was utilized to localize the planned surgical incisions. Two incisions were made over the lateral femur area and under fluoro guidance drill was advanced across the to screw holes in the distal end of the femur. This was done after care was taken to assure of the fracture was well aligned. Measurements were done and two screws were placed one in dynamic mode and one in static mode. The multiple fluoro imaging showed good position of the hardware. The incision was then closed with ratna and a dressing was applied. Marcaine was injected. The patient was awakened and taken to the recovery room in stable condition Counts repoted as correct: Yes WIL SAHA Jr., MD Mar 14, 2025 14:47
[2025-03-14] MEDS: morphine 4 MG/ML inj SYRINge IV PRN (15:18)
[2025-03-14] MEDS: acetaminophen 1,000mg/100ml IV 100 ML IV PRN (15:18)
--- NOTE | 2025-03-14 15:55 | RADIOLOGY REPORT ---
Procedure: DI FEMUR 2 VIEWS 03/14/2025 03:20 PM TECHNIQUE: DI FEMUR 2 VIEWS Indication: fx Comparison: None FINDINGS: There are intramedullary rods through an old right hip fracture and through the shaft of the right fe mur. There is an acute oblique fracture through the mid shaft of the right femur nondisplaced IMPRESSION: 1. Acute fracture mid shaft right femur
--- NOTE | 2025-03-14 18:39 | CARDIOLOGY REPORT ---
APPROVED REPORT EXAM: Comprehensive 2D, Doppler, and color-flow Echocardiogram. Patient Location: [address] Blood Pressure: 145/72 mmHg Heart Rate: 85 bpm Rhythm: SINUS Indications HYPERTENSION ASCENDING AORTA ANEURSYM REPAIR 2009 [employer]: Mervat Gamble MD Previous echo: 05/09/24 [facility] (EF 60-65%, trace AI, trace MR, trace TR) 2D Dimensions RVDd 3.9 cm IVSd 1.2 (0.7-1.1cm) LVDd 4.7 cm PWd 1.0 (0.7-1.1cm) IVSs 1.4 (0.8-1.2cm) LVDs 3.4 (2.5-4.0cm) PWs 1.8 (0.8-1.2cm) LVOT Diameter 2.40 (1.8-2.4cm) LVEF(%) 52.9 (>50%) IVC 17.01 mm FS (%) 27.2 % SV 54.8 ml CO 4.7 L/min M-Mode Dimensions Left Atrium(MM) 4.70 (2.5-4.0cm) Aortic Root 3.75 (2.2-3.7cm) Aortic Cusp Exc 2.31 (1.5-2.0cm) Aortic Valve AoV Peak Yaniv. 162.6 cm/s AoV VTI 28.6 cm AO Peak GR. 10.6 mmHg AO Mean GR. 6 mmHg LVOT VTI 22.35 cm LVOT Peak Yaniv. 121.6 cm/s REYES(VTI)/BSA 3.53 cm2/m2 REYES (VTI) 3.53 cm2 AI P 1/2 Time 300 ms Mitral Valve MV E Velocity 81.0 cm/s MV Peak Gr. 3 mmHg MV DECEL TIME 172 ms MV A Velocity 153.2 cm/s MV PHT 48 ms E/A Ratio 0.5 MVA (PHT) 4.58 cm2 MV VMax93.2 cm/s TDI Medial E' P. V 9.29 cm/s E/Medial E' 8.7 Pulmonary Vein S1 Velocity 74.9 cm/s D2 Velocity 48.5 cm/s PVa Lgcpysti75.8 cm/s PVa Hwsadefz46 msec LEFT VENTRICLE Normal LV size and function. Mild concentric hypertrophy. LVEF is 60-65%. RIGHT VENTRICLE RV is mildly dilated with normal systolic function. ATRIA LA appears mildly dilated. RA size appears normal. AORTIC VALVE Trileaflet AV appears mildly sclerotic without stenosis. Moderate insufficiency, best visualized apic ally. MITRAL VALVE Moderate MV annular calcification without stenosis. Trace regurgitation. TRICUSPID VALVE TV appears structurally normal with trace regurgitation. PULMONIC VALVE Normal PV without stenosis, physiologic insufficiency. GREAT VESSELS Aortic root is dilated. 38 mm Hemashield [place] ascending aorta graft is in place and f unctioning well. The IVC is normal in size and collapses greater than 50% with inspiration. PERICARDIUM Normal pericardium. No effusion. Other Information Study Quality: Adequate Conclusion Normal LV size and function. Mild concentric hypertrophy. LVEF is 60-65%. RV is mildly dilated with normal systolic function. LA appears mildly dilated. RA size appears normal. Trileaflet AV appears mildly sclerotic without stenosis. Moderate insufficiency, best visualized api raphael. Moderate MV annular calcification without stenosis. Trace regurgitation. TV appears structurally normal with trace regurgitation. Aortic root is dilated. 38 mm Hemashield [place] ascending aorta graft is in place and functioning w ell. Normal pericardium. No effusion.
[2025-03-14] MEDS: sacubitril/valsartan 24mg-26mg tablet PO SCH (19:31)
[2025-03-15] VITALS (7 sets, daily range): BP systolic 127–167; BP diastolic 64–83; PULSE 60–83; RESP 15–19; TEMP 97.3–98.2; O2SAT 93–99
[2025-03-15 05:05] LABS: BASOPHILS % (AUTO) 0.4 % (0-1); EOSINOPHILS % (AUTO) 0.1 % (0-6); HEMATOCRIT 35.8 % (35.0-45.0); HEMOGLOBIN 11.8 g/dl (12.0-16.0); LYMPHOCYTES # (AUTO) 1.1 X10'3 (1.1-4.8); LYMPHOCYTES % (AUTO) 11.4 % (21-51); MEAN CORPUSCULAR HEMOGLOBIN 29.4 PG (27.0-31.0); MEAN CORPUSCULAR HGB CONC 32.8 g/dL (33.0-36.5); MEAN CORPUSCULAR VOLUME 89.4 FL (78-98); MEAN PLATELET VOLUME 8.2 FL (7.4-10.4); MONOCYTES # (AUTO) 0.6 X10'3 (0-0.9); MONOCYTES % (AUTO) 6.5 % (2-12); NEUTROPHILS # (AUTO) 7.9 X10'3 (1.8-7.7); NEUTROPHILS % (AUTO) 81.6 % (42-75); PLATELET COUNT 184 X10'3 (140-440); RED BLOOD COUNT 4.01 X10'6 (4.20-5.60); RED CELL DISTRIBUTION WIDTH 14.8 % (11.5-14.5); WHITE BLOOD COUNT 9.7 X10'3 (4.5-11.0)
[2025-03-15 05:39] LABS: ALANINE AMINOTRANSFERASE 36 U/L (12-78); ALBUMIN 2.9 G/DL (3.4-5.0); ALBUMIN/GLOBULIN RATIO 0.9 (1.1-1.5); ALKALINE PHOSPHATASE 112 IU/L (46-116); ANION GAP 7 (8-16); ASPARTATE AMINO TRANSFERASE 34 U/L (10-37); BILIRUBIN,TOTAL 0.5 MG/DL (0.1-1.0); BLOOD UREA NITROGEN 20 MG/DL (7-18); BUN/CREATININE RATIO 28.6 (10.0-20.0); CALCIUM 8.5 MG/DL (8.5-10.1); CHLORIDE 106 MMOL/L (99-107); GLUCOSE 114 MG/DL (70-104); POTASSIUM 4.5 MMOL/L (3.5-5.1); SODIUM 142 MMOL/L (135-145); TOTAL CARBON DIOXIDE 29.5 MMOL/L (24-32); TOTAL PROTEIN 6.1 G/DL (6.4-8.2); eCRCL 47 ML/MIN; eGFR 79 ML/MIN
[2025-03-15] MEDS: acetaminophen 325mg tablet PO PRN (15:31)
--- NOTE | 2025-03-15 20:58 | PROGRESS NOTE ---
Daily Progress Note Providers to CC ~ Antibiotic Timeout Antibiotic Ordered?: No Subjective The patient was hopeful about being discharged home however physical therapy worked with the patient and she is requiring rehab- there were no other concerns voiced by the patient nor nursing staff Objective Vital Signs Date Time Temp Pulse Resp B/P (MAP) Pulse Ox O2 Delivery O2 Flow Rate FiO2 03/15/25 20:12 86 03/15/25 10:00 98.2 18 127/64 (85) 93 Room Air 03/15/25 08:55 03/15/25 02:54 96 Result Diagram: 03/15/2544303/15/25443 Gen. No acute distress alert and oriented 4 Lungs clear to ascultation bilaterally, no wheezes rales or rhonchi appreciated Heart normal sinus rhythm no murmurs rubs or clicks noted Abdomen soft nontender bowel sounds are normoactive Lower extremities no clubbing cyanosis, nor edema appreciated bilaterally, dressing is appreciated on the right lower extremity Coagulation Studies Laboratory Tests Test 03/12/25 19:53 Prothrombin Time 10.3 SECONDS (9.0-12.0) INR International Normalized Ratio 1.0 INR Activated Partial Thromboplast Time 27 SECONDS (22-32) Coagulation Comments Problem\Assessment\Plan 85 years old female with history of hypertension presented to the ED for mechanical fall # Mechanical fall # Wheelchair bound # Hx right hip fx s/p ORIF (2023) -xray reveals right femoral neck and proximal femur fracture, subacute right superior and inferior pubic fracture, mildly displaced obliquely oriented distal femoral diaphyseal periprosthetic fracture -03/13: consulted Dr. Saha, OR tomorrow -03/14: OR today -03/15 status post stabilization of the right femur fracture with placement of inner locking distal screws on 03/14/2025 # Acute decompensated diastolic heart failure- POA # Hypertensive urgency # Hypertension # History of aortic aneurysm status post repair in 2019 -TTE in 2023: LVEF is 60-65%, RVSP 27mmHg, no significant VHD -pBNP 2099, given a dose of Lasix, hold Entresto until post-op; hydralazine; TTE LVEF 60-65% -03/15 no signs of fluid overload- Code Status: DNR Disposition: Patient remains significantly weak and is requiring significant assitance with ambulation. Case management is working on rehab placement DVT/VTE prophylaxis: SCDs Date of Service: Mar 15, 2025 Billing Provider: CARLOS JOHNSON DO Common Visit Codes: [id number] INP/OBS CARE(HIGH) CARLOS JOHNSON DO Mar 15, 2025 20:58
[2025-03-16 05:50] LABS: BASOPHILS # (AUTO) 0.1 X10'3 (0-0.2); BASOPHILS % (AUTO) 0.7 % (0-1); EOSINOPHILS # (AUTO) 0.3 X10'3 (0-0.9); EOSINOPHILS % (AUTO) 3.3 % (0-6); HEMATOCRIT 37.8 % (35.0-45.0); HEMOGLOBIN 12.3 g/dl (12.0-16.0); LYMPHOCYTES # (AUTO) 3.8 X10'3 (1.1-4.8); LYMPHOCYTES % (AUTO) 36.9 % (21-51); MEAN CORPUSCULAR HEMOGLOBIN 29.7 PG (27.0-31.0); MEAN CORPUSCULAR HGB CONC 32.6 g/dL (33.0-36.5); MEAN CORPUSCULAR VOLUME 90.9 FL (78-98); MEAN PLATELET VOLUME 8.7 FL (7.4-10.4); MONOCYTES # (AUTO) 0.7 X10'3 (0-0.9); MONOCYTES % (AUTO) 6.9 % (2-12); NEUTROPHILS # (AUTO) 5.4 X10'3 (1.8-7.7); NEUTROPHILS % (AUTO) 52.2 % (42-75); PLATELET COUNT 168 X10'3 (140-440); RED BLOOD COUNT 4.16 X10'6 (4.20-5.60); RED CELL DISTRIBUTION WIDTH 15.6 % (11.5-14.5); WHITE BLOOD COUNT 10.3 X10'3 (4.5-11.0)
[2025-03-16 06:00] VITALS: BP 159/83; PULSE 79; RESP 16; TEMP 96.5; O2SAT 97
[2025-03-16 06:00] LABS: ALANINE AMINOTRANSFERASE 24 U/L (12-78); ALBUMIN 2.4 G/DL (3.4-5.0); ALBUMIN/GLOBULIN RATIO 0.8 (1.1-1.5); ALKALINE PHOSPHATASE 108 IU/L (46-116); ANION GAP 10 (8-16); ASPARTATE AMINO TRANSFERASE 15 U/L (10-37); BILIRUBIN,TOTAL 0.5 MG/DL (0.1-1.0); BLOOD UREA NITROGEN 20 MG/DL (7-18); BUN/CREATININE RATIO 30.3 (10.0-20.0); CALCIUM 8.4 MG/DL (8.5-10.1); CHLORIDE 108 MMOL/L (99-107); CREATININE 0.66 MG/DL (0.40-0.90); GLUCOSE 87 MG/DL (70-104); SODIUM 143 MMOL/L (135-145); TOTAL PROTEIN 5.6 G/DL (6.4-8.2); eCRCL 50 ML/MIN; eGFR 85 ML/MIN
[2025-03-16 08:30] VITALS: RESP 18; O2SAT 94
[2025-03-16 09:02] LABS: TOTAL CELLS COUNTED 100
[2025-03-16 09:03] LABS: PLATELET ESTIMATE NORMAL
[2025-03-16 10:00] VITALS: BP 141/79; PULSE 75; RESP 19; TEMP 97.9; O2SAT 94
[2025-03-16 18:30] VITALS: BP 196/91; PULSE 93; RESP 18; TEMP 97.5; O2SAT 94
[2025-03-16 19:00] VITALS: BP 129/82; PULSE 96; RESP 18; TEMP 98.4; O2SAT 92
[2025-03-16 22:00] VITALS: BP 158/91; PULSE 101; RESP 18; TEMP 98.7; O2SAT 90
--- NOTE | 2025-03-16 23:07 | PROGRESS NOTE ---
Daily Progress Note Providers to CC ~ Antibiotic Timeout Antibiotic Ordered?: No Subjective The patient is accepting of going to rehab though she rather go home. The patient has no acute complaints and there was no acute concerns voiced by nursing staff Objective Vital Signs Date Time Temp Pulse Resp B/P (MAP) Pulse Ox O2 Delivery O2 Flow Rate FiO2 03/16/25 20:53 95 03/16/25 19:00 98.4 18 129/82 (98) 92 Room Air 03/16/25 06:00 2.0 03/15/25 02:54 96 Result Diagram: 03/16/25 0453 03/16/25 045 Gen. No acute distress alert and oriented 4 Lungs clear to ascultation bilaterally, no wheezes rales or rhonchi appreciated Heart normal sinus rhythm no murmurs rubs or clicks noted Abdomen soft nontender bowel sounds are normoactive Lower extremities no clubbing cyanosis, nor edema appreciated bilaterally, dressing is appreciated on the right lower extremity Coagulation Studies Laboratory Tests Test 03/12/25 19:53 Prothrombin Time 10.3 SECONDS (9.0-12.0) INR International Normalized Ratio 1.0 INR Activated Partial Thromboplast Time 27 SECONDS (22-32) Coagulation Comments Problem\Assessment\Plan 85 years old female with history of hypertension presented to the ED for mechanical fall # Mechanical fall # Wheelchair bound # Hx right hip fx s/p ORIF (2023) -xray reveals right femoral neck and proximal femur fracture, subacute right superior and inferior pubic fracture, mildly displaced obliquely oriented distal femoral diaphyseal periprosthetic fracture -03/13: consulted Dr. Saha, OR tomorrow -03/14: OR today -03/15 status post stabilization of the right femur fracture with placement of inner locking distal screws on 03/14/2025 # Acute decompensated diastolic heart failure- POA # Hypertensive urgency # Hypertension # History of aortic aneurysm status post repair in 2019 -TTE in 2023: LVEF is 60-65%, RVSP 27mmHg, no significant VHD -pBNP 2099, given a dose of Lasix, hold Entresto until post-op; hydralazine; TTE LVEF 60-65% -03/15 no signs of fluid overload- Code Status: DNR Disposition: Patient remains significantly weak and is requiring significant assitance with ambulation. Case management is working on rehab placement- hopefully discharge in the a.m. to rehab DVT/VTE prophylaxis: SCDs Date of Service: Mar 16, 2025 Billing Provider: CARLOS JOHNSON DO Common Visit Codes: [id number] INP/OBS CARE(HIGH) CARLOS JOHNSON DO Mar 16, 2025 23:07
[2025-03-17 04:56] LABS: BASOPHILS # (AUTO) 0.1 X10'3 (0-0.2); BASOPHILS % (AUTO) 0.7 % (0-1); EOSINOPHILS # (AUTO) 0.4 X10'3 (0-0.9); EOSINOPHILS % (AUTO) 3.9 % (0-6); HEMATOCRIT 38.7 % (35.0-45.0); HEMOGLOBIN 12.5 g/dl (12.0-16.0); LYMPHOCYTES # (AUTO) 3.2 X10'3 (1.1-4.8); MEAN CORPUSCULAR HEMOGLOBIN 28.7 PG (27.0-31.0); MEAN CORPUSCULAR HGB CONC 32.2 g/dL (33.0-36.5); MEAN CORPUSCULAR VOLUME 89.1 FL (78-98); MEAN PLATELET VOLUME 8.1 FL (7.4-10.4); MONOCYTES # (AUTO) 0.6 X10'3 (0-0.9); MONOCYTES % (AUTO) 6.5 % (2-12); NEUTROPHILS # (AUTO) 5.5 X10'3 (1.8-7.7); NEUTROPHILS % (AUTO) 55.9 % (42-75); PLATELET COUNT 216 X10'3 (140-440); RED BLOOD COUNT 4.35 X10'6 (4.20-5.60); RED CELL DISTRIBUTION WIDTH 14.8 % (11.5-14.5); WHITE BLOOD COUNT 9.8 X10'3 (4.5-11.0)
[2025-03-17 05:15] LABS: ALANINE AMINOTRANSFERASE 18 U/L (12-78); ALBUMIN 2.8 G/DL (3.4-5.0); ALBUMIN/GLOBULIN RATIO 0.9 (1.1-1.5); ALKALINE PHOSPHATASE 135 IU/L (46-116); ANION GAP 5 (8-16); ASPARTATE AMINO TRANSFERASE 19 U/L (10-37); BILIRUBIN,TOTAL 0.4 MG/DL (0.1-1.0); BLOOD UREA NITROGEN 17 MG/DL (7-18); BUN/CREATININE RATIO 23.9 (10.0-20.0); CALCIUM 8.7 MG/DL (8.5-10.1); CHLORIDE 106 MMOL/L (99-107); CREATININE 0.71 MG/DL (0.40-0.90); GLUCOSE 102 MG/DL (70-104); SODIUM 146 MMOL/L (135-145); TOTAL CARBON DIOXIDE 34.8 MMOL/L (24-32); TOTAL PROTEIN 5.8 G/DL (6.4-8.2); eCRCL 46 ML/MIN; eGFR 78 ML/MIN
[2025-03-17 06:00] VITALS: BP 166/90; PULSE 84; RESP 16; TEMP 98.3; O2SAT 92
[2025-03-17 08:10] VITALS: RESP 20
[2025-03-17 10:00] VITALS: BP 137/79; PULSE 86; RESP 16; TEMP 98.2; O2SAT 96
--- NOTE | 2025-03-17 21:32 | DISCHARGE SUMMARY ---
Discharge Summary Providers to CC ~ Discharge Summary Admission Diagnosis: Right femur fracture Hospital Course DATE OF ADMISSION: 03/12/2025 DATE OF DISCHARGE: 03/17/2025 Discharge Diagnosis\\Comment: Right hip fracture, acute decompensated HFpEF, hypertensive urgency Operations\\Procedures: Stabilization of right femur fracture by placement of the interlocking distal screw Consultants: Dr. Juan C Saha orthopedic surgeon Complications: None Condition on DC: Stable for transfer Continued Medications: Bupropion HCl (Bupropion Xl) 150 Mg Tab.er.24h 1 TAB PO DAILY Citalopram Hydrobromide* (Celexa*) 20 Mg Tablet 1 TAB PO DAILY for 30 Days, #30 TAB Nebivolol Hcl (Bystolic) 20 Mg Tablet 1 TAB PO BID for 30 Days, #30 TAB Sertraline HCl (Sertraline HCl) 50 Mg Tablet 1 TAB PO DAILY Solifenacin Succinate (Vesicare) 10 Mg Tablet 10 MG PO DAILY for 30 Days, #30 TAB 0 Refills Discharge Summary: The patient was admitted by resident physician LUIS Ramon under the supervision of MATT Blount MD With the following HPI:"85 years old female presented to the ED after a mechanical fall. Patient reported he fell about five days ago from wheelchair on her hip and reported moderate he pain however he did not seek medical attention at this time. Patient had home x-ray today at her house which reported he fracture and advised her to visit hospital. Patient had history of right hip internal contrary femoral fracture in May status post ORIF with intramedullary by Dr. Saha. Patient transferred to rehab and after discharge from rehab she was using wheelchair and walker for ambulation. Patient reported she just started more physical activity recently and unfortunately she fell from her wheelchair last Friday. She denied any tingling sensation muscle weakness or any head trauma when she fell." The patient went to the OR with orthopedic surgeon Dr. Juan C Saha on 03/14/2025 and had a stabilization of the right femur fracture by placement of the interlocking distal screw. The patient did well during hospitalization however required transferred to rehab as she did not do well with physical therapy. The patient had a echocardiogram preop which demonstrated a LVEF of 60-65% the patient received one dose of IV Lasix there was no signs of fluid overload when I rounded on the patient from the 3rd to 5th. The patient initially had hypertensive urgency however her blood pressure control improved the patient was discharged to rehab on her home medications. Gen. No acute distress alert and oriented 4 Lungs clear to ascultation bilaterally, no wheezes rales or rhonchi appreciated Heart normal sinus rhythm no murmurs rubs or clicks noted Abdomen soft nontender bowel sounds are normoactive Lower extremities no clubbing cyanosis, nor edema appreciated bilaterally, dressing is appreciated on the right lower extremity The patient felt ready to be discharged and was medically cleared to be discharged on 03/17/2025 to Rehab The patient was seen and evaluated on day of discharge. Time spent on discharge 35 minutes *Problems/Diagnosis: (1) Kaley-prosthetic femoral shaft fracture Total Time Spent on D/C: > 30 Minutes Date of Service: Mar 17, 2025 Billing Provider: CARLOS JOHNSON DO Common Visit Codes: 71109-PZQ/OBS DISCH DAY >30min CARLOS JOHNSON DO Mar 17, 2025 21:31
== END 2025-03-17 13:35 | DRG 480 ==
LOC: ER 19:27 → ED HOLD 21:47 → PCU 3S 03-13 01:00 → ORTHO 4S 03-13 15:09
PROVIDERS: ADMIT Internal Medicine; ATTEND Nurse Practitioner Family
PROC: 0QH604Z Insertion of Internal Fixation Device into Right Upper Femur, Open Approach (ICD-10-PCS; principal; 2025-03-14 13:22)
DX: S72.091A Other fracture of head and neck of right femur, initial encounter for closed fracture (principal); I50.33 Acute on chronic diastolic (congestive) heart failure; W05.0XXA Fall from non-moving wheelchair, initial encounter; I16.0 Hypertensive urgency; Z66 Do not resuscitate; I11.0 Hypertensive heart disease with heart failure; Z91.013 Allergy to seafood; Y93.89 Activity, other specified; Y92.89 Other specified places as the place of occurrence of the external cause; Y99.8 Other external cause status
CPT/HCPCS: 36415; 71045; 73501; 73552; 73560; 76000; 80053; 80061; 82948; 83036; 83735; 83880; 84484; 85007; 85025; 85610; 85730; 87081; 93005; 93306; 96360; 97110; 97116; 97162; 97530; 99285; A4615; A4618; A7000; C1713; G0378; J0131; J0360; J0690; J1100; J1938; J2003; J2250; J2270; J2405; J2704; J3010; J3490; J7030; J7040; J7120